=== PATIENT | female | born 1995 | race Caucasian/White ===

== ENCOUNTER 2023-03-19 10:07 | Emergency (ER) | payer OTHER, SELFPAY ==
[2023-03-19 10:13] VITALS: BP 170/67; PULSE 75; RESP 18; TEMP 36.5; O2SAT 97; BMI 205.8
[2023-03-19 10:17] VITALS: O2SAT 98
[2023-03-19 10:18] VITALS: O2SAT 98
[2023-03-19 10:19] VITALS: BP 170/67; PULSE 82; RESP 18
--- NOTE | 2023-03-19 10:25 | ED.CHESTPAI1 ---
HPI - Chest Pain General Chief Complaint: Chest Pain Stated Complaint: CHEST PAIN Time Seen by Provider: 03/19/23 10:15 Source: patient Mode of arrival: walk-in Limitations: no limitations History of Present Illness HPI narrative: Patient presents to emergency department complaining of chest pain. Patient states she had just woken up and developed substernal chest pain radiating to the epigastric region. She states it felt like a burning, aching pain. Similar to when she had gallbladder issues. She states the last time she had this happened she was nauseated, and eventually passed out. She was seen and evaluated by her primary care doctor. She states today she wanted to be evaluated before she passed out. She denies any fever, chills, cough. She states the symptoms resolved after 10 minutes. Denies any previous history of heart disease, or thrombotic embolic disease. Patient does not take control or smokes. She has not had any recent surgery or long distance travel. She denies any lower extremity edema, or cramping. Denies any vomiting, diarrhea, constipation, or abdominal pain. Denies any flank pain, hematuria, dysuria. Patient has history of myocardial infarction diarrhea and she is not on any control which is what normally regulates her menses. Risk Factors Coronary artery disease risk factors: family history of CAD before age 50 Thoracic aortic dissection risk factors: none Pulmonary embolism risk factors: morbid obesity Related Data Allergies Allergy/AdvReac Type Severity Reaction Status Date / Time No Known Drug Allergies Allergy Verified 03/19/23 10:13 Review of Systems ROS Status of ROS 10 or more systems reviewed and unremarkable except as noted in history and below [facility] Social History Smoking status: Never smoker Exam Narrative Exam Narrative: Nurses notes and vital signs reviewed and patient is not hypoxic. General: Nontoxic, Well-appearing and in no apparent distress. Skin: Warm, dry, no pallor noted. No Rash Head: Normocephalic, atraumatic. Neck: Supple, non-tender. Eye: Pupils are equal, round and EOMI. No scleral icterus. Ears, Nose, Mouth, and Throat: TM clear, no posterior oropharynx erythema or nasal mucosal hypertrophy, uvula is mid-line Oral mucosa is moist Cardiovascular: Regular Rate and Rhythm without murmur, gallop or rub. Respiratory: No accessory muscle use or respiratory distress. Lungs are clear to auscultation, no wheezing, rales or rhonchi Chest Wall: no tenderness Back: No midline thoracic or lumbar vertebral tenderness. No CVA tenderness Musculoskeletal: normal ROM, no calf or popliteal tenderness, no lower extremity edema/swelling GI: obese, Abdomen is soft, non-distended. Normal bowel sounds. No masses appreciated. No tenderness to palpation. No rebound, guarding, or rigidity noted. Neurological: A&O x4. No cranial nerve dysfunction observed. No truncal ataxia. Moves all extremities. Sensation intact. Psychiatric: Cooperative and interactive. Normal mood and affect. Constitutional Vital Signs, click to edit/add: Last Vital Signs Temp 97.7 F 03/19/23 10:13 Pulse 82 03/19/23 10:19 Resp 18 03/19/23 10:19 BP 170/67 H 03/19/23 10:19 Pulse Ox 98 03/19/23 10:18 O2 Del Method Room Air 03/19/23 10:13 Course Vital Signs Vital signs: Vital Signs Temperature 97.7 F 03/19/23 10:13 Pulse Rate 75 03/19/23 10:13 Respiratory Rate 18 03/19/23 10:13 Blood Pressure 170/67 H 03/19/23 10:13 Pulse Oximetry 97 03/19/23 10:13 Oxygen Delivery Method Room Air 03/19/23 10:13 Temperature 97.7 F 03/19/23 10:13 Pulse Rate 82 03/19/23 10:19 Respiratory Rate 18 03/19/23 10:19 Blood Pressure 170/67 H 03/19/23 10:19 Pulse Oximetry 98 03/19/23 10:18 Oxygen Delivery Method Room Air 03/19/23 10:13 MDM - Chest Pain MDM Narrative Medical decision making narrative: Patients EKG is unremarkable. Patient was given IV fluids and lab work was done and is unremarkable. Chest x-ray is normal. All results were discussed with patient.Patient is advised follow-up with primary care doctor regarding this visit and to have her blood pressure rechecked. At this time the patient is without objective evidence of an acute process requiring hospitalization or inpatient management. The patient has remained hemodynamically stable. No additional indication for emergent studies at this time. I answered all questions. Discussed discharge instructions including standard anticipatory guidance and what should prompt a return to the emergency department, including if they get worse are not getting better or develops any new or concerning symptoms. I've given them specific time frame in which to follow-up, and who to follow-up with. The patient demonstrates understanding. Patient is nontoxic and stable for discharge with outpatient follow-up. This note was created with the assistance of a speech recognition program. Although the intention is to generate documents that actually reflects the content of the visit, no guarantees can be provided that every mistake has been identified and corrected by editing. Differential Diagnosis Differential diagnosis: Likely pneumothorax, atypical chest pain, st elevation myocardial infarction, chest pain and biliary colic Lab Data Attestation: I reviewed the patient's lab results. Labs: Lab Results 03/19/23 Range/Units 10:20 WBC 9.1 (4.0-11.0) 10^3/uL RBC 4.88 (4.20-5.40) 10^6/uL Hgb 14.7 (12.0-16.0) g/dL Hct 43.3 (36.0-48.0) % MCV 88.7 (81.0-99.0) fL MCH 30.1 (26.7-34.0) pg MCHC 33.9 (29.9-35.2) g/dL RDW 12.1 (11.0-15.0) % Plt Count 351 (150-450) 10^3/uL MPV 9.6 (9.5-13.5) fL Neut % (Auto) 61.1 (43.0-75.0) % Lymph % (Auto) 30.6 (20.5-60.0) % Lanier % (Auto) 6.3 (1.7-12.0) % Eos % (Auto) 1.2 (0.9-7.0) % Baso % (Auto) 0.5 (0.2-2.0) % Neut # (Auto) 5.6 (1.4-6.5) 10^3/uL Lymph # (Auto) 2.8 (1.2-3.8) 10^3/uL [place]ier # (Auto) 0.6 (0.3-0.8) 10^3/uL Eos # (Auto) 0.1 (0.0-0.7) 10^3/uL Baso # (Auto) 0.1 (0.0-0.1) 10^3/uL Abs Immat Gran (auto) 0.03 (0.00-0.03) 10^3/uL Imm/Tot Granulo (auto) 0.3 (0.0-0.5) % D-Dimer 0.26 (<=0.59) mg/L FEU Sodium 141 (136-145) mmol/L Potassium 4.1 (3.5-5.1) mmol/L Chloride 104 (98-107) mmol/L Carbon Dioxide 26.4 (21.0-32.0) mmol/L Anion Gap 14.7 BUN 10.0 (7.0-18.0) mg/dL Creatinine 0.80 (0.55-1.02) mg/dL Est GFR ( Amer) >60 (>=60) Est GFR (Non-Af Amer) >60 (>=60) BUN/Creatinine Ratio 12.5 Glucose 109 H (74-106) mg/dL Calcium 8.8 (8.5-10.1) mg/dL Total Bilirubin 0.4 (0.2-1.0) mg/dL AST 16 (15-37) U/L ALT 27 (14-59) U/L Alkaline Phosphatase 115 (46-116) U/L Troponin I High Sens 8.4 (4.0-51.3) pg/mL Total Protein 7.5 (6.4-8.2) g/dL Albumin 3.8 (3.4-5.0) g/dL Globulin 3.7 g/dL Albumin/Globulin Ratio 1.0 ECG Data Attestation: I personally reviewed and interpreted this ECG as follows: Interpretation: Sinus rhythm 70 bpm. T-wave inversion in lead 3. No acute ischemic changes. Heart Score History: Slightly/Non-Suspicious ECG: Normal Age: <45 years Risk Factors: 1 or 2 Risk Factors Troponin: <Normal Limit Total Heart Score Recommendations & Risks:: 1 Discharge Plan Discharge Chief Complaint: Chest Pain Clinical Impression: Chest pain Patient Disposition: Home, Self-Care Time of Disposition Decision: 11:21 Condition: Good Mode of Transportation: Private Vehicle Instructions: Chest Pain (ED) Stand Alone Forms: Portal Instructions Referrals: Physician,Non-Staff, [Physician] - 1 week Discharge Date/Time: 03/19/23 11:30
[2023-03-19 10:26] VITALS: PULSE 87
--- NOTE | 2023-03-19 10:41 | XR_ITS ---
The [address] [address] Patient Name: CLARK PULLIAM MRN: [id number] date: 1995 Sex: F Assigned Patient Location: ED.MAIN Current Patient Location: ER Accession/Order Number: [id number] Exam Date: 03/19/2023 10:52 Report Date: 03/19/2023 11:14 At the request of: OSWALD FRANKLIN Procedure: XR chest 1V PROCEDURE: XR chest 1V DATE: 03/19/2023 9:52 AM CDT COMPARISONS: None. CLINICAL INDICATION: 27 years Female chest pain FINDINGS: The cardiomediastinal silhouette and pulmonary vasculature are within normal limits. The lungs are clear. There is no evidence of pleural effusion or pneumothorax. XR/XR chest 1V IMPRESSION: Chest radiograph is within normal limits. Electronically authenticated by: MICHAEL GARCIA Date: 03/19/2023 11:14
--- NOTE | 2023-03-19 10:41 | ECG_ITS ---
The 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
[2023-03-19 10:49] LABS: Basophils Absolute Auto 0.1 10^3/uL (0.0-0.1); Basophils Percent Auto 0.5 % (0.2-2.0); Eosinophils Absolute Auto 0.1 10^3/uL (0.0-0.7); Eosinophils Percent Auto 1.2 % (0.9-7.0); Hematocrit 43.3 % (36.0-48.0); Hemoglobin 14.7 g/dL (12.0-16.0); Immature Granulocytes Abs Auto 0.03 10^3/uL (0.00-0.03); Immature Granulocytes Pct Auto 0.3 % (0.0-0.5); Lymphocytes Absolute Auto 2.8 10^3/uL (1.2-3.8); Lymphocytes Percent Auto 30.6 % (20.5-60.0); Mean Corpuscular HGB Conc 33.9 g/dL (29.9-35.2); Mean Corpuscular Hemoglobin 30.1 pg (26.7-34.0); Mean Corpuscular Volume 88.7 fL (81.0-99.0); Mean Platelet Volume 9.6 fL (9.5-13.5); Monocytes Absolute Auto 0.6 10^3/uL (0.3-0.8); Monocytes Percent Auto 6.3 % (1.7-12.0); Neutrophils Absolute Auto 5.6 10^3/uL (1.4-6.5); Neutrophils Percent Auto 61.1 % (43.0-75.0); Platelet Count 351 10^3/uL (150-450); Red Blood Count 4.88 10^6/uL (4.20-5.40); Red Cell Distribution Width 12.1 % (11.0-15.0); White Blood Count 9.1 10^3/uL (4.0-11.0)
[2023-03-19 11:08] LABS: Alanine Aminotransferase 27 U/L (14-59); Albumin Level 3.8 g/dL (3.4-5.0); Alkaline Phosphatase 115 U/L (46-116); Anion Gap 14.7; Aspartate Amino Transferase 16 U/L (15-37); BUN Creatinine Ratio 12.5; Bilirubin Total 0.4 mg/dL (0.2-1.0); Calcium 8.8 mg/dL (8.5-10.1); Carbon Dioxide 26.4 mmol/L (21.0-32.0); Chloride 104 mmol/L (98-107); Estimated GFR (African America >60 (>=60); Estimated GFR (Non-African Ame >60 (>=60); Globulin 3.7 g/dL; Glucose 109 mg/dL (74-106); Potassium 4.1 mmol/L (3.5-5.1); Sodium 141 mmol/L (136-145); Total Protein 7.5 g/dL (6.4-8.2); Troponin I High Sensitivity 8.4 pg/mL (4.0-51.3)
[2023-03-19 11:13] LABS: D Dimer 0.26 mg/L FEU (<=0.59)
== END 2023-03-19 11:30 | disposition home or self-care (01) ==
PROVIDERS: Emergency Provider Emergency Medicine; PCP Internal Medicine
DX: R07.9 Chest pain, unspecified (principal); Z82.49 Family history of ischemic heart disease and other diseases of the circulatory system
CPT/HCPCS: 36415; 71045; 80053; 84484; 85025; 85378; 93005; 99285

== ENCOUNTER 2025-07-01 10:22 | Outpatient (OUT) | payer BC, SELFPAY ==
--- OUTSIDE RECORDS SUMMARY | 2025-07-01 09:00 | XMS_ITS | Encounter Summary ---
Author Organization [facility] Address [address] [facility] [place] [address] Care Team Providers Care User Interface Developer Name Role Phone Unavailable Primary Care Provider Unavailabl e Reason for Visit * ReasonCommentsWell Women Visit Encounter Details DateTypeDepartmentCare Team (Latest Contact Info)Wisupadmxij82/27/2025 9:00 AM EDTProcedure Visit [facility] [address] [place] [phone] Leida Barkley PA [address] [place] [address] Pelvic pain in female (Primary Dx); Well woman exam with routine gynecological exam; Menorrhagia with regular cycle; Fertility testing; Syncope, unspecified syncope type Social History Tobacco UseTypesPacks/DayYears UsedDateSmoking Tobacco: Never Assessed CommentsUnknownSex and Gender InformationValueDate RecordedSex Assigned at Not on fileLegal ZubVjhrbu32/15/2023 7:04 PM EDTGender IdentityNot on fileSexual OrientationNot on filedocumented as of this encounter Last Filed Vital Signs Vital SignReadingTime TakenCommentsBlood Vsfsrjku854/801 9:20 AM EDT Pulse--Temperature--Respiratory Rate--Oxygen Saturation--Inhaled Oxygen Concentration--Gzidxj323 kg (237 lb 6.4 oz)07/01/2025 9:20 AM ATSZdfyhl617.6 cm (5' 6 )07/01/2025 9:20 AM EDTBody Mass Index38.321 9:20 AM EDT documented in this encounter Plan of Treatment DateTypeDepartmentCare Team (Latest Contact Info)Bmtnutcckpx65/25/2025 8:50 AM ESTOffice Visit [facility] [address] [place] [address] Jose Manuel Sharpe DO [address] [place] [address] NameTypePriorityAssociated DiagnosesOrder SchedulePap SmearPathology and CytologyRoutine Well [...] regular cycle Expected: 07/01/2025 (Approximate), Expires: 07/01/2026Hemoglobin A5tIbtTkynida Menorrhagia with regular cycle Ordered: 07/01/2025ECG 12 lead unit performedECGRoutine Syncope, unspecified syncope type Expected: 07/01/2025 (Approximate), Expires: 07/01/2026documented as of this encounter Procedures Procedure NamePriorityDate/TimeAssociated DiagnosisCommentsPOCT URINALYSIS KWOUXDNMFcthphw76/27/2025 10:15 AM EDT Pelvic pain in female POCT , UYKEFRrqbhgs97/27/2025 10:13 AM EDT Pelvic pain in female [...] Location / LateralityCollection Method / VolumeCollection TimeReceived RnvgPuupe96/27/2025 10:15 AM EDT Narrative Authorizing ProviderResult TypeResult StatusAmy [place] PAPOINT OF CARE TEST ENTER/EDIT ORDERABLESFinal Result * POCT , urine manually resulted (07/01/2025 10:13 AM EDT)Component ValueRef RangeTest MethodAnalysis TimePerformed AtPathologist SignaturePreg Test, UrNegativeNegativeSpecimen (Source)Anatomical Location / Laterality Collection Method / VolumeCollection TimeReceived DrreZcpuf58/27/2025 10:13 AM EDT Narrative Authorizing ProviderResult TypeResult [...]
--- OUTSIDE RECORDS SUMMARY | 2025-07-01 10:27 | XMS_ITS | Clinical Summary ---
Author Organization [facility] Address [address] [facility] [place] [address] Care Team Providers Care Lead Shop Operator Name Role Phone Unavailable Primary Care Provider Unavailabl e Encounters DateTypeDepartmentCare DngoZkqefalnytr33/27/2025 9:00 AM EDTProcedure Visit [facility] [address] [place] [address] Leida Barkley PA Pelvic pain in female (Primary Dx); Well woman exam with routine gynecological exam; Menorrhagia with regular cycle; Fertility testing; Syncope, unspecified syncope type07/01/2025amboo flowsheet [facility] [address] [place] [address] Leida Barkley PA from Last 3 Months Social History Tobacco UseTypesPacks/DayYears UsedDateSmoking Tobacco: Never Assessed CommentsUnknownSex and Gender InformationValueDate RecordedSex Assigned at Not on fileLegal FbdOwtdoo41/15/2023 7:04 PM EDTGender IdentityNot on fileSexual OrientationNot on file Last Filed Vital Signs Vital SignReadingTime TakenCommentsBlood Jgnqgges322/801 9:20 AM EDT Pulse--Temperature--Respiratory Rate--Oxygen Saturation--Inhaled Oxygen Concentration--Szcodt238 kg (237 lb 6.4 oz)07/01/2025 9:20 AM NXITyqkix462.6 cm (5' 6 )07/01/2025 9:20 AM EDTBody Mass Index38.321 9:20 AM EDT Plan of Treatment DateTypeDepartmentCare Team (Latest Contact Info)Hogvklljoab80/25/2025 8:50 AM ESTOffice Visit [facility] [address] [place] [address] Jose Manuel Sharpe DO [address] [facility] [address] [place], [place] [id number] Health MaintenanceDue DateLast DoneCommentsPap Smear2014Cervical Cancer Tmbajplgt58/12/2023HPV/Huxvga0107/17/2023Influenza Vaccine (#1)2025 Procedures Procedure NamePriorityDate/TimeAssociated DiagnosisCommentsPOCT URINALYSIS MTCUCHZLIsmzefz51/27/2025 10:15 AM EDT Pelvic pain in female POCT , LKCCVQejpuyi22/27/2025 10:13 AM EDT Pelvic pain in female from Last 3 Months Results * (ABNORMAL) POCT urinalysis dipstick manually [...] Location / LateralityCollection Method / VolumeCollection TimeReceived FebmYcmgr67/27/2025 10:15 AM EDT Narrative Authorizing ProviderResult TypeResult StatusAmy Forks PAPOINT OF CARE TEST ENTER/EDIT ORDERABLESFinal Result * POCT , urine manually resulted (07/01/2025 10:13 AM EDT)Component ValueRef RangeTest MethodAnalysis TimePerformed AtPathologist SignaturePreg Test, UrNegativeNegativeSpecimen (Source)Anatomical Location / Laterality Collection Method / VolumeCollection TimeReceived AftbNvbvb80/27/2025 10:13 AM EDT Narrative Authorizing ProviderResult TypeResult StatusAmy Filippo PAPOINT OF CARE TEST ENTER/EDIT ORDERABLESFinal Result from Last 3 Months Insurance
--- OUTSIDE RECORDS SUMMARY | 2025-07-01 10:27 | XMS_ITS | Encounter Summary ---
Author Organization [facility] Address [address] [place] [address] Care Team Providers Care Cardiology Fellow Name Role Phone Unavailable Primary Care Provider Unavailabl e Encounter Details DateTypeDepartmentCare Team (Latest Contact Info)Suzwmkjfbfb45/27/2025amboo flowsheet [facility] [address] [facility] [address] Leida Barkley PA [address] [facility] [address] [place], [facility]11 Social History Tobacco UseTypesPacks/DayYears UsedDateSmoking Tobacco: Never Assessed CommentsUnknownSex and Gender InformationValueDate RecordedSex Assigned at Not on fileLegal YjmAedhrq02/15/2023 7:04 PM EDTGender IdentityNot on fileSexual OrientationNot on filedocumented as of this encounter Plan of Treatment DateTypeDepartmentCare Team (Latest Contact Info)Uuwnllftrpa90/25/2025 8:50 AM ESTOffice Visit [facility] TR[facility] [address] [facility] [address] Jose Manuel Sharpe DO [address] [facility] [address] [place], [facility]11 documented as of this encounter Visit Diagnoses Not on filedocumented in this encounter
--- OUTSIDE RECORDS SUMMARY | 2025-07-01 10:27 | XMS_ITS | Clinical Summary ---
Author Organization [employer] Address [id number] [address] [place] [address] Care Team Providers Care Wine Cellar Worker Name Role Phone Jerry Orozco MD Primary Care Provider [phone] Allergies Active AllergyReactionsCriticalityNoted RsfmNjofimmiGknntebkjjwSiygQfh59/16/2017 Medications MedicationSigDispense QuantityRefillsLast FilledStart DateEnd DateStatus semaglutide 0.25 mg or 0.5 mg(2 mg/1.5 mL) pen injector Inject under the skin every 7 days.Active escitalopram (LEXAPRO) 10 mg tablet Indications:AnxietyTake 1 tablet (10 mg total) by mouth in the morning. 90 tablet 5Active Active Problems ProblemNoted DateDiagnosed DateAmenorrhea, ifjczinyu40/13/2018 Encounters DateTypeDepartmentCare RfxqMkpsameslst00/22/2025 3:15 PM EDTOffice Visit [facility] [address] [place] [address] Jerry Orozco MD Anxiety (Primary Dx)04/26/20255055Zswpby53/13/2025Refill [facility] [address] [place] [address] Jerry Orozco MD Depression, unspecified depression typefrom Last 3 Months Immunizations ImmunizationAdministration DatesNext DueCOVID-19, mRNA, LNP-S, PF, 100mcg/0.5mL Dose08/09/2021,12/31/2020,12/03/2020 Family History Medical HistoryRelationNameCommentsHypertensionFatherHypertensionMaternal GrandfatherCholecystitisMaternal GrandmotherHeart diseaseMaternal Grandmother HypertensionMaternal UncleGallbladder diseaseMotherRelationNameStatusComments FatherAliveMaternal GrandfatherMaternal GrandmotherDeceasedMaternal UncleMother Alive Social History Tobacco UseTypesPacks/DayYears UsedDateSmoking Tobacco: NeverSmokeless Tobacco: Never Tobacco Cessation:Counseling Given: No Alcohol UseStandard Drinks/WeekCommentsNo0 (1 standard drink = 0.6 oz pure alcohol)PHQ-2AnswerDate RecordedTotal Hsukp6395ChildcareAnswerDate YpikunpuQinmzjfjsZdyfpjl33/12/2019EmploymentAnswerDate RecordedEmploymentUnknown 02/14/2019Hunger ScreeningAnswerDate RecordedWithin the past 12 months we worried whether our food would run out before we got money to buy more.Never True04/26/2025Within the past 12 months the food we bought just didn't last and we didn't have money to get more.Never True04/26/2025Purpose - LifeAnswerDate RecordedPurpose and direction in uoiuFfysnsa46/11/2021CommentsNoSex and Gender InformationValueDate RecordedSex Assigned at BirthNot on fileLegal Sex Hhmago6604/10/2015 11:48 AM EDTGender IdentityNot on fileSexual OrientationNot on file Last Filed Vital Signs Vital SignReadingTime TakenCommentsBlood Xhkwnpmy525/8404/26/2025 3:09 PM EDT Fvabs27921/22/2025 3:09 PM TEWWlktnagqfbl05.4 ??C (97.6 ??F)04/26/2025 3:09 PM EDTRespiratory Efmj764709/16/2018 12:15 PM ESTOxygen Gcczhuvkmu52%2019 12:15 PM ESTInhaled Oxygen Concentration--Ulvqlj387.5 kg (250 lb 3.2 oz)04/26/2025 3:09 PM PGSBzluer111.3 cm (5' 6.26 )04/26/2025 3:09 PM EDTBody Mass Index40.07 04/26/2025 3:09 PM EDT Plan of Treatment Health MaintenanceDue DateLast DoneCommentsAdult BMI Follow Up Plan2011 DTaP,Tdap and Td Vaccines (1 - Tdap)2012Pap Smear2014COVID-19 Vaccine (4 - 2024- season)/01/2021, 12/31/2020, 12/03/2020 Influenza Aqnuykr0605/06/2025dult BMI Awxglncds67Depression Vxqzhxqwn24Tobacco Hsshmrcbg44 Medical Devices Not on file Insurance * Guarantor: Carmelita Nunez TypeRelation to PatientDate of PhoneBilling [id number] [address] [place] [address] Care Teams Team MemberRelationshipSpecialtyStart DateEnd Date Jerry Orozco MD [address] [place] [address], [address] [place] [address] PCP - GeneralPediatric02/15/18
[2025-07-01 10:50] LABS: Hematocrit 43.6 % (36.0-48.0); Hemoglobin 15.1 g/dL (12.0-16.0); Immature Granulocytes Abs Auto 0.02 10^3/uL (0.00-0.03); Immature Granulocytes Pct Auto 0.2 % (0.0-0.5); Lymphocytes Absolute Auto 2.4 10^3/uL (1.2-3.8); Mean Corpuscular HGB Conc 34.6 g/dL (29.9-35.2); Mean Corpuscular Hemoglobin 31.3 pg (26.7-34.0); Mean Corpuscular Volume 90.5 fL (81.0-99.0); Platelet Count 319 10^3/uL (150-450); Red Blood Count 4.82 10^6/uL (4.20-5.40); White Blood Count 9.2 10^3/uL (4.0-11.0)
[2025-07-01 11:07] LABS: INR 1.03; Partial Thromboplastin Time 31.3 sec (22.3-36.2); Prothrombin Time 10.9 sec (9.0-11.6)
[2025-07-01 11:49] LABS: Thyroid Stimulating Hormone 1.782 uIU/mL (0.358-3.740)
== END 2025-07-01 10:23 | disposition home or self-care (01) ==
LOC: LAB 10:25
PROVIDERS: PCP Internal Medicine; Visit Provider Nurse Practitioner Family
DX: Z01.419 Encounter for gynecological examination (general) (routine) without abnormal findings (principal); N92.0 Excessive and frequent menstruation with regular cycle
CPT/HCPCS: 36415; 83036; 84439; 84443; 84702; 85025; 85610; 85730; 88175

== ENCOUNTER 2025-07-01 12:23 | Outpatient (REF) | payer BC, SELFPAY ==
--- OUTSIDE RECORDS SUMMARY | 2025-07-01 09:00 | XMS_ITS | Encounter Summary ---
Author Organization [facility] Address [address] [place] [address] Care Team Providers Care Professor Of Art History Name Role Phone Unavailable Primary Care Provider Unavailabl e Reason for Visit * ReasonCommentsWell Women Visit Encounter Details DateTypeDepartmentCare Team (Latest Contact Info)Jgerayoqppv65/27/2025 9:00 AM EDTProcedure Visit [facility] [address] [place] [phone] Leida Barkley PA [address] [place] [address] Pelvic pain in female (Primary Dx); Well woman exam with routine gynecological exam; Menorrhagia with regular cycle; Fertility testing; Syncope, unspecified syncope type Social History Tobacco UseTypesPacks/DayYears UsedDateSmoking Tobacco: Never Assessed CommentsUnknownSex and Gender InformationValueDate RecordedSex Assigned at Not on fileLegal UliSujpwi64/15/2023 7:04 PM EDTGender IdentityNot on fileSexual OrientationNot on filedocumented as of this encounter Last Filed Vital Signs Vital SignReadingTime TakenCommentsBlood Xmazssio138/801 9:20 AM EDT Pulse--Temperature--Respiratory Rate--Oxygen Saturation--Inhaled Oxygen Concentration--Xrthdw276 kg (237 lb 6.4 oz)07/01/2025 9:20 AM VJNOeqklx698.6 cm (5' 6 )07/01/2025 9:20 AM EDTBody Mass Index38.321 9:20 AM EDT documented in this encounter Progress Notes * BRANT Boyle - 07/01/2025 9:00 AM EDT Reason for Appointment: Patient ID: Carmelita Nunez is a 29 y.o. female who presents for Well Women Visit Patient presents today for Annual Exam. MEDICATIONS No current outpatient medications ALLERGIES Not on File PROBLEMS Active Ambulatory Problems Diagnosis Date Noted No Active Ambulatory Problems Resolved Ambulatory Problems Diagnosis Date Noted No Resolved Ambulatory Problems No Additional Past Medical History HISTORY PAST MEDICAL HISTORY SOCIAL HISTORY History reviewed. No pertinent past medical history. Social History Tobacco Use Smoking status: Not on file Smokeless tobacco: Not on file Substance Use Topics Alcohol use: Not on file Drug use: Not on file FAMILY HISTORY No family history on file. SURGICAL HISTORY Past Surgical History: Procedure Laterality Date 2018 TONSILLECTOMY REVIEW OF SYSTEMS Review of Systems: Review of Systems Constitutional: Negative. HENT: Negative. Eyes: Negative. Respiratory: Negative. Cardiovascular: Negative. Syncope Gastrointestinal: Negative. Genitourinary: Positive for menstrual problem, pelvic pain and vaginal bleeding. Musculoskeletal: Negative. Skin: Negative. Neurological: Negative. All other systems reviewed and are negative. Hematological: Negative. Endocrine: Negative. Allergic/Immunologic: Negative. OBJECTIVE Objective: Physical Exam Constitutional: Appearance: Normal appearance. She is well-developed. Genitourinary: Vulva normal. Breasts: Breasts are soft. Right: Normal. Left: Normal. Cardiovascular: Rate and Rhythm: Normal rate and regular rhythm. Pulmonary: Effort: Pulmonary effort is normal. Breath sounds: Normal breath sounds. Abdominal: General: Bowel sounds are normal. There is no distension. Palpations: Abdomen is soft. Tenderness: There is no abdominal tenderness. There is no guarding or rebound. Musculoskeletal: General: No swelling. Normal range of motion. Right lower leg: No edema. Left lower leg: No edema. Neurological: Mental Status: She is alert and oriented to person, place, and time. Skin: General: Skin is warm and dry. Psychiatric: Mood and Affect: Mood normal. Behavior: Behavior normal. Vitals and nursing note reviewed. Exam conducted with a mobile game engineer present. Vitals: Estimated body mass index is 38.32 kg/m?? as calculated from the following: Height as of this encounter: 5' 6 . Weight as of this encounter: 237 lb 6.4 oz. BP: 122/80 No LMP recorded (within months). Assessment/Plan ICD-10-CM 1. Pelvic pain in female R10.20 US Pelvis w/ TV 2. Well woman exam with routine gynecological exam Z01.419 Pap Smear HPV DNA probe, amplified 3. Menorrhagia with regular cycle N92.0 CBC and differential TSH hCG, quantitative, Protime-INR T4, free APTT Hemoglobin A1c APTT Annual Exam: Patient presents today for an annual exam. Patient states she is doing well and has no complaints. Pap was obtained without difficulty. Patient with complaints of heavy irregular menstrual cycles andpelvic pain right sided. Sometimes the pain is so significant that she will have a syncopal episodethis initially began in 2020 and will have vomiting associated with this. Patient states syncopal ev ents are occurring more often just prior to starting menstral cycles. Given syncopal events will recommend referral to cardiology. Orders Placed This Encounter Procedures HPV DNA probe, amplified US Pelvis w/ TV CBC and differential TSH hCG, quantitative, Protime-INR T4, free APTT Hemoglobin A1c Follow Up: Will obtain pelvic ultrasound, EKG and labs and will scheduled a return office visit to review labsand discuss infertility options and referral to cardiology. Patient is to return in one year for annual unless needed otherwise. Documented by Michelle Hagen NP on behalf of: BRANT Boyle documented in this encounter Plan of Treatment DateTypeDepartmentCare Team (Latest Contact Info)Pjbfejsoefk57/25/2025 8:50 AM ESTOffice Visit [facility] [address] [place] [phone] Jose Manuel Sharpe DO [address] [place] [address] NameTypePriorityAssociated DiagnosesOrder SchedulePap SmearPathology and CytologyRoutine Well woman exam with routine gynecological exam Ordered: 07/01/2025HPV DNA probe, amplifiedMicrobiologyRoutine Well woman exam with routine gynecological exam Ordered: 07/01/2025US Pelvis w/ TVImagingRoutine Pelvic pain in female Expected: 07/01/2025, Expires: 12/30/2025BC and differentialLabRoutine Menorrhagia with regular cycle Ordered: 07/01/2025TSHLabRoutine Menorrhagia with regular cycle Ordered: 07/01/2025hCG, quantitative, pregnancyLabRoutine Menorrhagia with regular cycle Ordered: 07/01/2025Protime-INRLabRoutine Menorrhagia with regular cycle Ordered: 07/01/2025T4, freeLabRoutine Menorrhagia with regular cycle Ordered: 07/01/2025PTTLabRoutine Menorrhagia with regular cycle Expected: 07/01/2025 (Approximate), Expires: 07/01/2026Hemoglobin M8rHjqJywudfo Menorrhagia with regular cycle Ordered: 07/01/2025ECG 12 lead unit performedECGRoutine Syncope, unspecified syncope type Expected: 07/01/2025 (Approximate), Expires: 07/01/2026documented as of this encounter Procedures Procedure NamePriorityDate/TimeAssociated DiagnosisCommentsPOCT URINALYSIS CBVKWVWUSuxqwtr89/27/2025 10:15 AM EDT Pelvic pain in female POCT , RPEQHRpvtkhz15/27/2025 10:13 AM EDT Pelvic pain in female documented in this encounter Results * (ABNORMAL) POCT urinalysis dipstick manually resulted (07/01/2025 10:15 AM EDT)ComponentValueRef RangeTest MethodAnalysis TimePerformed AtPathologist SignatureColor, UAYellowClarity, UAClearGlucose, UANegativeNegative - 2000(110) ++++ mg/dLBilirubin, UAPositiveNegative - 4(70) +++ mg/dLKetones, UA NegativeNegative - 160(16) ++++ mg/dLSpec Grav, UA1.0251 - 1.03Blood, UA NegativeNegative - 50 Basim/mcLpH, UA6.05 - 9Protein, UAPositiveNegative - 2000(20) ++++ mg/dLUrobilinogen, UA1.00.2 - 12 mg/dLLeukocytes, UANegative Negative - 500+++ Jaylon/mcLNitrite, UANegativeNegative - PositiveSpecimen (Source)Anatomical Location / LateralityCollection Method / VolumeCollection TimeReceived PylrVsxdu09/27/2025 10:15 AM EDT Narrative Authorizing ProviderResult TypeResult StatusAmy Filippo PAPOINT OF CARE TEST ENTER/EDIT ORDERABLESFinal Result * POCT , urine manually resulted (07/01/2025 10:13 AM EDT)Component ValueRef RangeTest MethodAnalysis TimePerformed AtPathologist SignaturePreg Test, UrNegativeNegativeSpecimen (Source)Anatomical Location / Laterality Collection Method / VolumeCollection TimeReceived VyvtLdqmh19/27/2025 10:13 AM EDT Narrative Authorizing ProviderResult TypeResult StatusAmy [place] PAPOINT OF CARE TEST ENTER/EDIT ORDERABLESFinal Result documented in this encounter Visit Diagnoses Diagnosis Pelvic pain in female- Primary Unspecified symptom associated with female genital organs Well woman exam with routine gynecological exam Routine gynecological examination Menorrhagia with regular cycle Fertility testing Syncope, unspecified syncope type documented in this encounter
--- OUTSIDE RECORDS SUMMARY | 2025-07-01 12:27 | XMS_ITS | Clinical Summary ---
Author Organization [facility] Address [address] [place] [address] Care Team Providers Care Web Designer Developer Name Role Phone Unavailable Primary Care Provider Unavailabl e Social History Tobacco UseTypesPacks/DayYears UsedDateSmoking Tobacco: Never Assessed CommentsUnknownSex and Gender InformationValueDate RecordedSex Assigned at Not on fileLegal SxvWcquau29/08/2022 10:52 AM EDTGender IdentityNot on file Sexual OrientationNot on file Plan of Treatment Health MaintenanceDue DateLast DoneCommentsAnxiety Brfppczsr25/12/2011Depression Ntwzqsshi09/12/2011HIV Bmpbjegva23/12/2011Hepatitis C Iwvmfzbyy98/12/2011 DTaP,Tdap,Td Vaccine (1 - Tdap)2012Hepatitis B Vaccine (1 of 3 - 19+ 3- dose series)2012Cervical Cancer Gnqyiamwc82/12/2014HPV Vaccine (1 - 3-dose SCDM series)2020Covid-19 Vaccine ( season), 12/31/2020, 12/03/2020Influenza Vaccine (#1)2025
--- OUTSIDE RECORDS SUMMARY | 2025-07-01 12:28 | XMS_ITS | Clinical Summary ---
Author Organization [employer] Address [id number] [address] [place] [address] Care Team Providers Care Arcgis Developer Name Role Phone Jerry Orozco MD Primary Care Provider [phone] Allergies Active AllergyReactionsCriticalityNoted EpauNlizfxjtRxpegblyrdgWmiyFyf41/16/2017 Medications MedicationSigDispense QuantityRefillsLast FilledStart DateEnd DateStatus semaglutide 0.25 mg or 0.5 mg(2 mg/1.5 mL) pen injector Inject under the skin every 7 days.Active escitalopram (LEXAPRO) 10 mg tablet Indications:AnxietyTake 1 tablet (10 mg total) by mouth in the morning. 90 tablet 5Active Active Problems ProblemNoted DateDiagnosed DateAmenorrhea, naotayuhv56/13/2018 Encounters DateTypeDepartmentCare HuzhTwwcfimvrpp68/22/2025 3:15 PM EDTOffice Visit [facility] [address] [place] [address] Jerry Orozco MD Anxiety (Primary Dx)04/26/20258495Sjlkwi24/13/2025Refill [facility] [address] [place] [address] Jerry Orozco MD Depression, unspecified depression typefrom Last 3 Months Immunizations ImmunizationAdministration DatesNext DueCOVID-19, mRNA, LNP-S, PF, 100mcg/0.5mL Dose08/09/2021,12/31/2020,12/03/2020 Family History Medical HistoryRelationNameCommentsHypertensionFatherHypertensionMaternal GrandfatherCholecystitisMaternal GrandmotherHeart diseaseMaternal Grandmother HypertensionMaternal UncleGallbladder diseaseMotherRelationNameStatusComments FatherAliveMaternal GrandfatherMaternal GrandmotherDeceasedMaternal UncleMother Alive Social History Tobacco UseTypesPacks/DayYears UsedDateSmoking Tobacco: NeverSmokeless Tobacco: Never Tobacco Cessation:Counseling Given: No Alcohol UseStandard Drinks/WeekCommentsNo0 (1 standard drink = 0.6 oz pure alcohol)PHQ-2AnswerDate RecordedTotal Nqqbi1305ChildcareAnswerDate KsshwkpkOdrzzemevBzjrree52/12/2019EmploymentAnswerDate RecordedEmploymentUnknown 02/14/2019Hunger ScreeningAnswerDate RecordedWithin the past 12 months we worried whether our food would run out before we got money to buy more.Never True04/26/2025Within the past 12 months the food we bought just didn't last and we didn't have money to get more.Never True04/26/2025Purpose - LifeAnswerDate RecordedPurpose and direction in fggrPcsvxzl54/11/2021CommentsNoSex and Gender InformationValueDate RecordedSex Assigned at BirthNot on fileLegal Sex Gfybou7104/10/2015 11:48 AM EDTGender IdentityNot on fileSexual OrientationNot on file Last Filed Vital Signs Vital SignReadingTime TakenCommentsBlood Zsepurzs511/8404/26/2025 3:09 PM EDT Jkwcp94709/22/2025 3:09 PM QFNCwlxpbragcz94.4 ??C (97.6 ??F)04/26/2025 3:09 PM EDTRespiratory Dqho591509/16/2018 12:15 PM ESTOxygen Gpdetpzmab60%2019 12:15 PM ESTInhaled Oxygen Concentration--Pewtrb005.5 kg (250 lb 3.2 oz)04/26/2025 3:09 PM DMVFexgjp188.3 cm (5' 6.26 )04/26/2025 3:09 PM EDTBody Mass Index40.07 04/26/2025 3:09 PM EDT Plan of Treatment Health MaintenanceDue DateLast DoneCommentsAdult BMI Follow Up Plan2011 DTaP,Tdap and Td Vaccines (1 - Tdap)2012Pap Smear2014COVID-19 Vaccine (4 - 2024- season)/01/2021, 12/31/2020, 12/03/2020 Influenza Uhrehxw5305/06/2025dult BMI Vbkwfigpu16Depression Kkatfuiyr83Tobacco Qcofgmhje41 Medical Devices Not on file Insurance * Guarantor: Carmelita Nunez TypeRelation to PatientDate of PhoneBilling [id number] [address] [place] [address] Care Teams Team MemberRelationshipSpecialtyStart DateEnd Date Jerry Orozco MD [address] [place] [address], [address] [place] [address] PCP - GeneralPediatric02/15/18
--- OUTSIDE RECORDS SUMMARY | 2025-07-01 12:28 | XMS_ITS | Clinical Summary ---
Author Organization [facility] Address [address] [place] [place] [address] Care Team Providers Care Health Care / Medical Job Titles Name Role Phone Unavailable Primary Care Provider Unavailabl e Encounters DateTypeDepartmentCare ZfsrEkpmjttacci62/27/2025 9:00 AM EDTProcedure Visit [facility] [address] [facility] [place] [address] Leida Barkley PA Pelvic pain in female (Primary Dx); Well woman exam with routine gynecological exam; Menorrhagia with regular cycle; Fertility testing; Syncope, unspecified syncope type5Clinisync Result Encounter [facility] External Department Unsolicited Michelle Hagen NP 5Bamboo flowsheet [facility] [address] [facility] [place] [address] Leida Barkley PA from Last 3 Months Social History Tobacco UseTypesPacks/DayYears UsedDateSmoking Tobacco: Never Assessed CommentsUnknownSex and Gender InformationValueDate RecordedSex Assigned at Not on fileLegal ImmKywcxf98/15/2023 7:04 PM EDTGender IdentityNot on fileSexual OrientationNot on file Last Filed Vital Signs Vital SignReadingTime TakenCommentsBlood Tuajnpoc006/801 9:20 AM EDT Pulse--Temperature--Respiratory Rate--Oxygen Saturation--Inhaled Oxygen Concentration--Kszsch231 kg (237 lb 6.4 oz)07/01/2025 9:20 AM YTPHhohrs790.6 cm (5' 6 )07/01/2025 9:20 AM EDTBody Mass Index38.321 9:20 AM EDT Plan of Treatment DateTypeDepartmentCare Team (Latest Contact Info)Gypcjsaamsl83/25/2025 8:50 AM ESTOffice Visit [facility] [address] [place] [phone] Jose Manuel Sharpe, [address] [facility] [place] [address] Health MaintenanceDue DateLast DoneCommentsMMR Vaccines (1 of 1 - Standard series)1994DTaP/Tdap/Td Vaccines (1 - Tdap)2000Varicella Vaccines (1 of 2 - 13+ 2-dose series)2006Hepatitis B Vaccines (1 of 3 - 19+ 3-dose series)2012Pap Smear2014HPV Vaccines (1 - 3-dose SCDM series) 2020Cervical Cancer Ukumhtwoj77/12/2023HPV/Gquswf613COVID-19 Vaccine ( season)/01/2021, 12/31/2020, 12/03/2020 Influenza Vaccine (#1)2025HIB VaccinesAged OutNo longer eligible based on patient's age to complete this topicHepatitis A VaccinesAged OutNo longer eligible based on patient's age to complete this topicIPV VaccinesAged OutNo longer eligible based on patient's age to complete this topicMeningococcal B VaccineAged OutNo longer eligible based on patient's age to complete this topic Meningococcal VaccineAged OutNo longer eligible based on patient's age to complete this topicPneumococcal Vaccine: Pediatrics (0 to 5 Years) and At-Risk Patients (6 to 64 Years)Aged OutNo longer eligible based on patient's age to complete this topicRotavirus VaccinesAged OutNo longer eligible based on patient's age to complete this topic Procedures Procedure NamePriorityDate/TimeAssociated DiagnosisCommentsCCF APTTRoutine 07/01/2025 10:44 AM EDT SRMCOH PROTHROMBIN TIME INR W/O WRXGJnlobpw07/27/2025 10:44 AM EDT TBH PREG QUANT HUFQqdmdeu91/27/2025 10:44 AM EDT ALL THYROID STIM JWSPMTMNmzifsw30/27/2025 10:44 AM EDT ALL THYROXINE (T4) MFPVKjbmxcu89/27/2025 10:44 AM EDT MLR HEMOGLOBIN U9YLbfsdqt06/27/2025 10:44 AM EDT ALL CBC WITH AUTO DUEEOgdwndp86/27/2025 10:44 AM EDT POCT URINALYSIS PDSLRCOLJzxejwh11/27/2025 10:15 AM EDT Pelvic pain in female POCT , OBGJPWlzebty20/27/2025 10:13 AM EDT Pelvic pain in female from Last 3 Months Results * TBH PREG QUANT HCG (07/01/2025 10:44 AM EDT)ComponentValueRef RangeTest Method Analysis TimePerformed AtPathologist SignatureHCG QUANTITATIVE<1mIU/mLTBH Comment: 5-50 ? 0.2-1 WEEK 50-500 ? 1-2 WEEKS 100-5,000 ?2-3 WEEKS 500-10,000 ? 3-4 WEEKS 1,000-50,000 ?? 4-5 WEEKS 10,000-100,000 5-6 WEEKS 15,000-200,000 6-8 WEEKS 10,000-100,000 2-3 MONTHS Specimen (Source)Anatomical Location / LateralityCollection Method / Volume Collection TimeReceived Time07/01/2025 10:44 AM EDT1 10:46 AM EDT Narrative [facility] - 07/01/2025 11:50 AM EDT Authorizing ProviderResult TypeResult StatusKristina Xiao [facility] CENTERLINISYNCFinal ResultPerforming OrganizationAddressCity/State/ZIP CodePhone Number [facility] * SRMCOH PROTHROMBIN TIME INR W/O COUM (07/01/2025 10:44 AM EDT)ComponentValue Ref RangeTest MethodAnalysis TimePerformed AtPathologist SignaturePROTHROMBIN TIME10.99.0 - 11.6 secTBHTBH INR1.03TBHComment: DESIRED INR: 2.0-3.0 CONDITIONS NOT LISTED BELOW 2.5-3.5 FOR PROSTHETIC HEART VALVE REPLACEMENT 2.5-3.5 RECURRENT THROMBOSIS Specimen (Source)Anatomical Location / LateralityCollection Method / Volume Collection TimeReceived Time07/01/2025 10:44 AM EDT1 10:46 AM EDT Narrative [facility] - 07/01/2025 12:11 PM EDT Authorizing ProviderResult TypeResult StatusMichelle Hagen [facility]ENTERLINISYNCFinal ResultPerforming OrganizationAddressCity/State/ZIP CodePhone Number [facility] * MLR HEMOGLOBIN A1C (07/01/2025 10:44 AM EDT)ComponentValueRef RangeTest Method Analysis TimePerformed AtPathologist SignatureGLYCOHEMOGLOBIN A1C4.74.5 - 6.2 %TBHComment: ADA RECOMMENDED LIMIT 4.0 - 6.0 ADA THERAPEUTIC TARGET < 7.0 ACTION SUGGESTED > 7.0 ESTIMATED AVERAGE JZCWWLO76er/dLTBHSpecimen (Source)Anatomical Location / LateralityCollection Method / VolumeCollection TimeReceived Time07/01/2025 10:44 AM EDT1 10:46 AM EDT Narrative [facility] - 07/01/2025 11:13 AM EDT Authorizing ProviderResult TypeResult StatusMichelle Hagen [facility] CENTERLINISYNCFinal ResultPerforming OrganizationAddressty/State/ZIP CodePhone Number [facility] * [facility] APTT (07/01/2025 10:44 AM EDT)ComponentValueRef RangeTest MethodAnalysis TimePerformed AtPathologist SignaturePARTIAL THROMBOPLASTIN TIME31.322.3 - 36.2 secTBHSpecimen (Source)Anatomical Location / LateralityCollection Method / VolumeCollection TimeReceived Time07/01/2025 10:44 AM EDT1 10:46 AM EDT Narrative [facility] - 07/01/2025 12:11 PM EDT Authorizing ProviderResult TypeResult StatusMichelle Hagen [facility] CENTERLINISYNCFinal ResultPerforming OrganizationAddressCity/State/ZIP CodePhone Number [facility] * ALL THYROXINE (T4) FREE (07/01/2025 10:44 AM EDT)ComponentValueRef RangeTest MethodAnalysis TimePerformed AtPathologist SignatureFREE T41.050.76 - 1.46 ng/dLTBHSpecimen (Source)Anatomical Location / LateralityCollection Method / VolumeCollection TimeReceived Time07/01/2025 10:44 AM EDT1 10:46 AM EDT Narrative [facility] - 07/01/2025 11:50 AM EDT Authorizing ProviderResult TypeResult StatusMichelle Hagen [facility]ENTERLINISYNCFinal ResultPerforming OrganizationAddressCity/State/ZIP CodePhone Number [facility] * ALL THYROID STIM HORMONE (07/01/2025 10:44 AM EDT)ComponentValueRef RangeTest MethodAnalysis TimePerformed AtPathologist SignatureTHYROID STIMULATING HORMONE1.7820.358 - 3.740 uIU/mLTBHSpecimen (Source)Anatomical Location / LateralityCollection Method / VolumeCollection TimeReceived Time07/01/2025 10:44 AM EDT1 10:46 AM EDT [facility] - 07/01/2025 11:50 AM EDT Authorizing ProviderResult TypeResult StatusMichelle Hagen [facility] CENTERLINISYNCBrooklyn Hospital Centeral ResultPerforming OrganizationAddressty/State/ZIP CodePhone Number [facility] * (ABNORMAL) ALL CBC WITH AUTO DIFF (07/01/2025 10:44 AM EDT)ComponentValueRef RangeTest MethodAnalysis TimePerformed AtPathologist SignatureTBH WBC9.24.0 - 11.0 10 3/uLTBHTBH RBC4.824.20 - 5.40 10 6/uLTBHTBH HGB15.112.0 - 16.0 g/dLTBH TBH HCT43.636.0 - 48.0 %TBHTBH MCV90.581.0 - 99.0 fLTBHTBH MCH31.326.7 - 34.0 pgTBHTBH MCHC34.629.9 - 35.2 g/dLTBHTBH RDW11.911.0 - 15.0 %TBHTBH YOI854817 - 450 10 3/uLTBHTBH MPV9.4(L)9.5 - 13.5 fLTBHNEUTROPHILS PERCENT AUTO65.543.0 - 75.0 %TBHLYMPHOCYTES PERCENT AUTO25.920.5 - 60.0 %TBHMONOCYTES PERCENT AUTO5.6 1.7 - 12.0 %TBHTBH EO %2.00.9 - 7.0 %TBHBASOPHILS PERCENT AUTO0.80.2 - 2.0 % TBHIMMATURE GRANULOCYTES PCT AUTO0.20.0 - 0.5 %TBHNEUTROPHILS ABSOLUTE AUTO6.0 1.4 - 6.5 10 3/uLTBHLYMPHOCYTES ABSOLUTE AUTO2.41.2 - 3.8 10 3/uLTBHMONOCYTES ABSOLUTE AUTO0.50.3 - 0.8 10 3/uLTBHTBH EO #0.20.0 - 0.7 10 3/uLTBHBASOPHILS ABSOLUTE AUTO0.10.0 - 0.1 10 3/uLTBHIMMATURE GRANULOCYTES ABS AUTO0.020.00 - 0.03 10 3/uLTBHSpecimen (Source)Anatomical Location / LateralityCollection Method / VolumeCollection TimeReceived Time07/01/2025 10:44 AM EDT1 10:46 AM EDT Narrative [facility] - 07/01/2025 10:53 AM EDT Authorizing ProviderResult TypeResult StatusKrodilia Hgaen NPCLINISYNCFinal ResultPerforming OrganizationAddressCity/State/ZIP CodePhone Number [facility] * (ABNORMAL) POCT urinalysis dipstick manually resulted (07/01/2025 10:15 AM EDT)ComponentValueRef RangeTest MethodAnalysis TimePerformed AtPathologist SignatureColor, UAYellowClarity, UAClearGlucose, UANegativeNegative - 1999(110) ++++ mg/dLBilirubin, UAPositiveNegative - 4(70) +++ mg/dLKetones, UA NegativeNegative - 160(16) ++++ mg/dLSpec Grav, UA1.0251 - 1.03Blood, UA NegativeNegative - 50 Basim/mcLpH, UA6.05 - 9Protein, UAPositiveNegative - 1999(20) ++++ mg/dLUrobilinogen, UA1.00.2 - 12 mg/dLLeukocytes, UANegative Negative - 500+++ Jaylon/mcLNitrite, UANegativeNegative - PositiveSpecimen (Source)Anatomical Location / LateralityCollection Method / VolumeCollection TimeReceived ItcyWmypk86/27/2025 10:15 AM EDT Narrative Authorizing ProviderResult TypeResult StatusAmy Filippo PAPOINT OF CARE TEST ENTER/EDIT ORDERABLESFinal Result * POCT , urine manually resulted (07/01/2025 10:13 AM EDT)Component ValueRef RangeTest MethodAnalysis TimePerformed AtPathologist SignaturePreg Test, UrNegativeNegativeSpecimen (Source)Anatomical Location / Laterality Collection Method / VolumeCollection TimeReceived EgnrZyjnp67/27/2025 10:13 AM EDT Narrative Authorizing ProviderResult TypeResult StatusAmy Filippo PAPOINT OF CARE TEST ENTER/EDIT ORDERABLESFinal Result from Last 3 Months Insurance
--- OUTSIDE RECORDS SUMMARY | 2025-07-01 12:28 | XMS_ITS | Encounter Summary ---
Author Organization [facility] Address [address] [place] [address] [place] [address] Care Team Providers Care Sales Performance Analyst Name Role Phone Unavailable Primary Care Provider Unavailabl e Encounter Details DateTypeDepartmentCare Team (Latest Contact Info)Imjddqqojqp15/27/2025amboo flowsheet [facility] [address] [place] [address] Leida Barkley PA [address] [facility] [address] [place], [facility] Social History Tobacco UseTypesPacks/DayYears UsedDateSmoking Tobacco: Never Assessed CommentsUnknownSex and Gender InformationValueDate RecordedSex Assigned at Not on fileLegal RavBgkcoh39/15/2023 7:04 PM EDTGender IdentityNot on fileSexual OrientationNot on filedocumented as of this encounter Plan of Treatment DateTypeDepartmentCare Team (Latest Contact Info)Igkqecykvky86/25/2025 8:50 AM ESTOffice Visit [facility] [address] [place] [address] Jose Manuel Sharpe DO [address] [facility] [address] [facility] [address] [place], [facility]11 documented as of this encounter Visit Diagnoses Not on filedocumented in this encounter
--- OUTSIDE RECORDS SUMMARY | 2025-07-01 12:28 | XMS_ITS | Encounter Summary ---
Author Organization [facility] Address [address] [place] [address] Care Team Providers Care Reclamation Worker Name Role Phone Unavailable Primary Care Provider Unavailabl e Encounter Details DateTypeDepartmentCare Team (Latest Contact Info)Ujyosijolqu40/27/2025linisync Result Encounter [facility] External Department Unsolicited Michelle Hagen, FERMENTOLOGIST [address] [place] [address] Social History Tobacco UseTypesPacks/DayYears UsedDateSmoking Tobacco: Never Assessed CommentsUnknownSex and Gender InformationValueDate RecordedSex Assigned at Not on fileLegal KwpFllrvp28/15/2023 7:04 PM EDTGender IdentityNot on fileSexual OrientationNot on filedocumented as of this encounter Plan of Treatment DateTypeDepartmentCare Team (Latest Contact Info)Fbtosasifyx72/25/2025 8:50 AM ESTOffice Visit NOMRayna [place] OBGYElvira [address] [facility] [facility] [place] [address] Jose Manuel Sharpe DO [address] [place] [address] documented as of this encounter Procedures Procedure NamePriorityDate/TimeAssociated DiagnosisCommentsTBH PREG QUANT HCG Rdursjh0007/01/2025 10:44 AM EDT SRMCOH PROTHROMBIN TIME INR W/O CCJNDbaowdm73/27/2025 10:44 AM EDT MLR HEMOGLOBIN I3OSjjxxmx68/27/2025 10:44 AM EDT [facility] TRTRMsmismk49/27/2025 10:44 AM EDT ALL THYROXINE (T4) BCGITdkdcen13/27/2025 10:44 AM EDT ALL THYROID STIM GEPXAMBPwlkptz48/27/2025 10:44 AM EDT ALL CBC WITH AUTO GUDSWaoyxey94/27/2025 10:44 AM EDT documented in this encounter Results * [facility] APTT (07/01/2025 10:44 AM EDT)ComponentValueRef RangeTest MethodAnalysis TimePerformed AtPathologist SignaturePARTIAL THROMBOPLASTIN TIME31.322.3 - 36.2 secTBHSpecimen (Source)Anatomical Location / LateralityCollection Method / VolumeCollection TimeReceived Time07/01/2025 10:44 AM EDT1 10:46 AM EDT Narrative CLINISYELENITA - 07/01/2025 12:11 PM EDT Authorizing ProviderResult TypeResult StatusMichelle Hagen NPCLINISYNCFinal ResultPerforming OrganizationAddressCity/State/ZIP CodePhone Number [facility] * SRMCOH PROTHROMBIN TIME INR W/O COUM (07/01/2025 10:44 AM EDT)ComponentValue Ref RangeTest MethodAnalysis TimePerformed AtPathologist SignaturePROTHROMBIN TIME10.99.0 - 11.6 secTBHTBH INR1.03TBHComment: DESIRED INR: 2.0-3.0 CONDITIONS NOT LISTED BELOW 2.5-3.5 FOR PROSTHETIC HEART VALVE REPLACEMENT 2.5-3.5 RECURRENT THROMBOSIS Specimen (Source)Anatomical Location / LateralityCollection Method / Volume Collection TimeReceived Time07/01/2025 10:44 AM EDT1 10:46 AM EDT Narrative CLINISYNC - 07/01/2025 12:11 PM EDT Authorizing ProviderResult TypeResult StatusMichelle Hagen NPCLINISYNCFinal ResultPerforming OrganizationAddressCity/State/ZIP CodePhone Number [facility] * TBH PREG QUANT HCG (07/01/2025 10:44 [...] AM EDT Authorizing ProviderResult TypeResult StatusMichelle Hagen [facility]NC[facility] ResultPerforming OrganizationAddressCity/State/ZIP CodePhone Number [facility] * ALL THYROID STIM HORMONE (07/01/2025 10:44 AM EDT)ComponentValueRef RangeTest MethodAnalysis TimePerformed AtPathologist SignatureTHYROID STIMULATING HORMONE1.7820.358 - 3.740 uIU/mLTBHSpecimen (Source)Anatomical Location / LateralityCollection Method / VolumeCollection TimeReceived Time07/01/2025 10:44 AM EDT1 10:46 AM EDT Narrative CLINISYNC - 07/01/2025 11:50 AM EDT Authorizing ProviderResult TypeResult StatusMichelle Hagen [facility]ELINISYNCFinal ResultPerforming OrganizationAddressty/State/ZIP CodePhone Number [facility] * ALL THYROXINE (T4) FREE (07/01/2025 10:44 AM EDT)ComponentValueRef RangeTest MethodAnalysis TimePerformed AtPathologist SignatureFREE T41.050.76 - 1.46 ng/dLTBHSpecimen (Source)Anatomical Location / LateralityCollection Method / VolumeCollection TimeReceived Time07/01/2025 10:44 AM EDT1 10:46 AM EDT Narrative [facility] - 07/01/2025 11:50 AM EDT Authorizing ProviderResult TypeResult StatusMichelle Hagen [facility]INISYNCFinal ResultPerforming OrganizationAddressCity/State/ZIP CodePhone Number [facility] * MLR HEMOGLOBIN A1C (07/01/2025 10:44 AM EDT)ComponentValueRef RangeTest Method Analysis TimePerformed AtPathologist SignatureGLYCOHEMOGLOBIN A1C4.74.5 - 6.2 %TBHComment: ADA RECOMMENDED LIMIT 4.0 - 6.0 ADA THERAPEUTIC TARGET < 7.0 ACTION SUGGESTED > 7.0 ESTIMATED AVERAGE CLPBNBJ60fd/dLTBHSpecimen (Source)Anatomical Location / LateralityCollection Method / VolumeCollection TimeReceived Time07/01/2025 10:44 AM EDT1 10:46 AM EDT [facility] - 07/01/2025 11:13 AM EDT Authorizing ProviderResult TypeResult StatusMichelle Hagen [facility]INISYNCFinal ResultPerforming OrganizationAddressCity/State/ZIP CodePhone Number [facility] * (ABNORMAL) ALL CBC WITH AUTO DIFF (07/01/2025 10:44 AM EDT)ComponentValueRef RangeTest MethodAnalysis TimePerformed AtPathologist SignatureTBH WBC9.24.0 - 11.0 10 3/uLTBHTBH RBC4.824.20 - 5.40 10 6/uLTBHTBH HGB15.112.0 - 16.0 g/dLTBH TBH HCT43.636.0 - 48.0 %TBHTBH MCV90.581.0 - 99.0 fLTBHTBH MCH31.326.7 - 34.0 pgTBHTBH MCHC34.629.9 - 35.2 g/dLTBHTBH RDW11.911.0 - 15.0 %TBHTBH DLK810555 - 450 10 3/uLTBHTBH MPV9.4(L)9.5 - 13.5 [...] 07/01/2025 10:53 AM EDT Authorizing ProviderResult TypeResult StatusMichelle Hagen NPCLINISYNCFinal ResultPerforming OrganizationAddressCity/State/ZIP CodePhone Number [facility] documented in this encounter Visit Diagnoses Not on filedocumented in this encounter
== END 2025-07-01 12:24 | disposition home or self-care (01) ==
LOC: LAB 12:23
PROVIDERS: PCP Internal Medicine; Visit Provider Nurse Practitioner Family
DX: Z01.419 Encounter for gynecological examination (general) (routine) without abnormal findings (principal)
CPT/HCPCS: 88175

== ENCOUNTER 2025-07-03 14:50 | Outpatient (OUT) | payer BC, SELFPAY ==
--- OUTSIDE RECORDS SUMMARY | 2025-07-01 09:00 | XMS_ITS | Encounter Summary ---
Author Organization [facility] Address [address] [place] [place] [address] Care Team Providers Care Cloud Architect Name Role Phone Unavailable Primary Care Provider Unavailabl e Reason for Visit * ReasonCommentsWell Women Visit Encounter Details DateTypeDepartmentCare Team (Latest Contact Info)Wvufxwymrbb83/27/2025 9:00 AM EDTProcedure Visit [facility] [address] [place] [phone] Leida Barkley PA [address] [place] [address] Pelvic pain in female (Primary Dx); Well woman exam with routine gynecological exam; Menorrhagia with regular cycle; Fertility testing; Syncope, unspecified syncope type Social History Tobacco UseTypesPacks/DayYears UsedDateSmoking Tobacco: Never Assessed CommentsUnknownSex and Gender InformationValueDate RecordedSex Assigned at Not on fileLegal EmbTwgubu72/15/2023 7:04 PM EDTGender IdentityNot on fileSexual OrientationNot on filedocumented as of this encounter Last Filed Vital Signs Vital SignReadingTime TakenCommentsBlood Zahhszsv332/801 9:20 AM EDT Pulse--Temperature--Respiratory Rate--Oxygen Saturation--Inhaled Oxygen Concentration--Njkhzw752 kg (237 lb 6.4 oz)07/01/2025 9:20 AM RORLxotmj001.6 cm (5' 6 )07/01/2025 9:20 AM EDTBody [...] nursing note reviewed. Exam conducted with a dobby loom fixer present. Vitals: Estimated body mass index is [...] Plan of Treatment DateTypeDepartmentCare Team (Latest Contact Info)Iozyqzuutwq95/25/2025 8:50 AM ESTOffice Visit [facility] [address] [place] [phone] Jose Manuel Sharpe DO [address] [place] [address] NameTypePriorityAssociated DiagnosesOrder SchedulePap SmearPathology and CytologyRoutine Well [...] regular cycle Expected: 07/01/2025 (Approximate), Expires: 07/01/2026Hemoglobin V6rLcoXyoywqe Menorrhagia with regular cycle Ordered: 07/01/2025ECG 12 lead unit performedECGRoutine Syncope, unspecified syncope type Expected: 07/01/2025 (Approximate), Expires: 07/01/2026documented as of this encounter Procedures Procedure NamePriorityDate/TimeAssociated DiagnosisCommentsPOCT URINALYSIS XKIRAMDBNmphvya98/27/2025 10:15 AM EDT Pelvic pain in female POCT , RRRSFVrigozt46/27/2025 10:13 AM EDT Pelvic pain in female [...] Location / LateralityCollection Method / VolumeCollection TimeReceived XjbpRkhau88/27/2025 10:15 AM EDT Narrative Authorizing ProviderResult TypeResult StatusAmy Filippo PAPOINT OF CARE TEST ENTER/EDIT ORDERABLESFinal Result * POCT , urine manually resulted (07/01/2025 10:13 AM EDT)Component ValueRef RangeTest MethodAnalysis TimePerformed AtPathologist SignaturePreg Test, UrNegativeNegativeSpecimen (Source)Anatomical Location / Laterality Collection Method / VolumeCollection TimeReceived OentNjdtg87/27/2025 10:13 AM EDT Narrative Authorizing ProviderResult TypeResult StatusAmy [place] PAPOINT OF CARE TEST ENTER/EDIT ORDERABLESFinal Result documented in this encounter Visit Diagnoses Diagnosis Pelvic pain in female- Primary Unspecified symptom associated with female genital organs Well woman exam with routine gynecological exam Routine gynecological examination Menorrhagia with regular cycle Fertility testing Syncope, unspecified syncope type documented in this encounter
--- OUTSIDE RECORDS SUMMARY | 2025-07-03 14:56 | XMS_ITS | Encounter Summary ---
Author Organization [facility] Address [address] [place] [address] Care Team Providers Care Defective Cigarette Slitter Name Role Phone Unavailable Primary Care Provider Unavailabl e Encounter Details DateTypeDepartmentCare Team (Latest Contact Info)Jfgcrrtzjyn61/27/2025amboo flowsheet BOB TRIPP [address] [place] [address] Leida Barkley PA [address] [place], [facility] Social History Tobacco UseTypesPacks/DayYears UsedDateSmoking Tobacco: Never Assessed CommentsUnknownSex and Gender InformationValueDate RecordedSex Assigned at Not on fileLegal QqdDmddlp46/15/2023 7:04 PM EDTGender IdentityNot on fileSexual OrientationNot on filedocumented as of this encounter Plan of Treatment DateTypeDepartmentCare Team (Latest Contact Info)Egifyobkfiq08/25/2025 8:50 AM ESTOffice Visit BOB TRIPP [address] [address] Jose Manuel Sharpe DO [address] [facility] [address] [place], [facility] documented as of this encounter Visit Diagnoses Not on filedocumented in this encounter
--- OUTSIDE RECORDS SUMMARY | 2025-07-03 14:56 | XMS_ITS | Encounter Summary ---
Author Organization [facility] Address [address] [facility] [place] [address] Care Team Providers Care Datastage Architect Name Role Phone Unavailable Primary Care Provider Unavailabl e Encounter Details DateTypeDepartmentCare Team (Latest Contact Info)Wvgasubvdkl90/27/2025linisync Result Encounter [facility] External Department Unsolicited Michelle Hagen, SECURITY GUARD DISPATCHER [address] [place] [address] Social History Tobacco UseTypesPacks/DayYears UsedDateSmoking Tobacco: Never Assessed CommentsUnknownSex and Gender InformationValueDate RecordedSex Assigned at Not on fileLegal HtmCdzqmb21/15/2023 7:04 PM EDTGender IdentityNot on fileSexual OrientationNot on filedocumented as of this encounter Plan of Treatment DateTypeDepartmentCare Team (Latest Contact Info)Jpsjkztmqpv78/25/2025 8:50 AM ESTOffice Visit NOMRayna [place] OBGYElvira [address] [place] [address] Jose Manuel Sharpe DO [address] [place] [address] documented as of this encounter Procedures Procedure NamePriorityDate/TimeAssociated DiagnosisCommentsTBH PREG QUANT HCG Nssafng3407/01/2025 10:44 AM EDT SRMCOH PROTHROMBIN TIME INR W/O TKRWPkvlgfd34/27/2025 10:44 AM EDT MLR HEMOGLOBIN L6VUakwojv24/27/2025 10:44 AM EDT [facility] ROHHTamnbwn83/27/2025 10:44 AM EDT ALL THYROXINE (T4) SERJKctgcxt53/27/2025 10:44 AM EDT ALL THYROID STIM ZKZUVMJAbonkeo39/27/2025 10:44 AM EDT ALL CBC WITH AUTO BWMSRqmztlw79/27/2025 10:44 AM EDT IGP,APTIMA HPV,AGE ECHMOacwopb66/27/2025 9:07 AM EDT documented in this encounter Results * [facility] APTT (07/01/2025 10:44 AM EDT)ComponentValueRef RangeTest MethodAnalysis TimePerformed AtPathologist SignaturePARTIAL THROMBOPLASTIN TIME31.322.3 - 36.2 secTBHSpecimen (Source)Anatomical Location / LateralityCollection Method / VolumeCollection TimeReceived Time07/01/2025 10:44 AM EDT1 10:46 AM EDT Dayna ARELLANO - 07/01/2025 12:11 PM EDT Authorizing ProviderResult TypeResult StatusKrodilia Hagen NPCLINISYNCFinal ResultPerforming OrganizationAddressCity/State/ZIP CodePhone Number [facility] * SRMCOH PROTHROMBIN TIME INR W/O COUM (07/01/2025 10:44 AM EDT)ComponentValue Ref RangeTest MethodAnalysis TimePerformed AtPathologist SignaturePROTHROMBIN TIME10.99.0 - 11.6 secTBHTBH INR1.03TBHComment: DESIRED INR: 2.0-3.0 CONDITIONS NOT LISTED BELOW 2.5-3.5 FOR PROSTHETIC HEART VALVE REPLACEMENT 2.5-3.5 RECURRENT THROMBOSIS Specimen (Source)Anatomical Location / LateralityCollection Method / Volume Collection TimeReceived Time07/01/2025 10:44 AM EDT1 10:46 AM EDT Narrative CLINISYKS - 07/01/2025 12:11 PM EDT Authorizing ProviderResult TypeResult StatusWaylonodilia Hagen [facility]ENTERLINISYNCFinia ResultPerforming OrganizationAddressty/State/ZIP CodePhone Number [facility] * TBH PREG QUANT HCG [...] 10:44 AM EDT1 10:46 AM EDT Narrative CLINISYKS - 07/01/2025 11:50 AM EDT Authorizing ProviderResult TypeResult StatusWaylonodilia Hagen [facility]NC[facility] ResultPerforming OrganizationAddressty/State/ZIP CodePhone Number [facility] * ALL THYROID STIM HORMONE (07/01/2025 10:44 AM EDT)ComponentValueRef RangeTest MethodAnalysis TimePerformed AtPathologist SignatureTHYROID STIMULATING HORMONE1.7820.358 - 3.740 uIU/mLTBHSpecimen (Source)Anatomical Location / LateralityCollection Method / VolumeCollection TimeReceived Time07/01/2025 10:44 AM EDT1 10:46 AM EDT Narrative CLINISYNC - 07/01/2025 11:50 AM EDT Authorizing ProviderResult TypeResult StatusMichelle Belloly NPCLINISYNCFinal ResultPerforming OrganizationAddressCity/State/ZIP CodePhone Number [facility] * ALL THYROXINE (T4) FREE (07/01/2025 10:44 AM EDT)ComponentValueRef RangeTest MethodAnalysis TimePerformed AtPathologist SignatureFREE T41.050.76 - 1.46 ng/dLTBHSpecimen (Source)Anatomical Location / LateralityCollection Method / VolumeCollection TimeReceived Time07/01/2025 10:44 AM EDT1 10:46 AM EDT Narrative CLINISYNC - 07/01/2025 11:50 AM EDT Authorizing ProviderResult TypeResult StatusMichelle Hagen [facility]ENTERLINISYNCFinal ResultPerforming OrganizationAddressCity/State/ZIP CodePhone Number [facility] * MLR HEMOGLOBIN A1C (07/01/2025 10:44 AM EDT)ComponentValueRef RangeTest Method Analysis TimePerformed AtPathologist SignatureGLYCOHEMOGLOBIN A1C4.74.5 - 6.2 %TBHComment: ADA RECOMMENDED LIMIT 4.0 - 6.0 ADA THERAPEUTIC TARGET < 7.0 ACTION SUGGESTED > 7.0 ESTIMATED AVERAGE HLIKTYP45xp/dLTBHSpecimen (Source)Anatomical Location / LateralityCollection Method / VolumeCollection TimeReceived Time07/01/2025 10:44 AM EDT1 10:46 AM EDT Narrative CLINISYNC - 07/01/2025 11:13 AM EDT Authorizing ProviderResult TypeResult StatusMichelle Hagen [facility]ENTERLINISYNCFinal ResultPerforming OrganizationAddressCity/State/ZIP CodePhone Number [facility] * (ABNORMAL) ALL CBC WITH AUTO DIFF (07/01/2025 10:44 AM EDT)ComponentValueRef RangeTest MethodAnalysis TimePerformed AtPathologist SignatureTBH WBC9.24.0 - 11.0 10 3/uLTBHTBH RBC4.824.20 - 5.40 10 6/uLTBHTBH HGB15.112.0 - 16.0 g/dLTBH TBH HCT43.636.0 - 48.0 %TBHTBH MCV90.581.0 - 99.0 fLTBHTBH MCH31.326.7 - 34.0 pgTBHTBH MCHC34.629.9 - 35.2 g/dLTBHTBH RDW11.911.0 - 15.0 %TBHTBH DNI481648 - 450 10 3/uLTBHTBH MPV9.4(L)9.5 - 13.5 [...] 07/01/2025 10:53 AM EDT Authorizing ProviderResult TypeResult StatusKristina Xiao NPCLINISYNCFinal ResultPerforming OrganizationAddressCity/State/ZIP CodePhone Number [facility]NC [facility] * IGP,APTIMA HPV,AGE GDLN (07/01/2025 9:07 AM EDT)ComponentValueRef RangeTest MethodAnalysis TimePerformed AtPathologist SignatureAGE GDLN ACOG TESTINGNote. TBHComment: ?? TESTS ? RESULT ??FLAG ??UNITS ?REF RANGE ??LAB ?? Clinician Provided Cytology Information ?? Source.............Cervix;Endocervix ?? No. of containers..01 ThinPrep Vial Age Algo ACOG Frances... ??30-65 ? 01 ?FLAG LEGEND: ?L-Low Normal,H-High Normal,LL-Alert Low,HH-Alert High <-Panic Low,>-Panic High,A-Abnormal,AA-Critical Abnormal Performed at: 01 =G ?[facility] ?? [address] [place] ??[phone] ?? Cari Frost MD, IGP, APTIMA HPV, RFX 16/18,45Note.TBHComment: ?? TESTS ? RESULT ??FLAG ??UNITS ?REF RANGE ??LAB DIAGNOSIS: ?02 ?? NEGATIVE FOR INTRAEPITHELIAL LESION OR MALIGNANCY. Specimen adequacy: ?02 ?? Satisfactory for evaluation. ??Endocervical and/or squamous metaplastic ?? cells (endocervical component) are present. Performed by: ? 02 ?? Norma Vargas [employer] Project Manager (ASCP) . ? 02 Note: ? Note ?02 ?? The Pap smear is a screening test designed to aid in the ?? detection of premalignant and malignant conditions of the ?? uterine cervix. ??It is not a diagnostic procedure and ?? should not be used as the sole means of detecting cervical ?? cancer. ??Both false-positive and false-negative reports do ?? occur. Test Methodology: ? Note ?02 ?? This liquid based ThinPrep(R) pap test was interpreted ?? using the WealthEngine(R) Genius(TM) Cervical Algorithm whole ?? slide imaging system. HPV Genotype Reflex ?? Note ?02 ?? Criteria not met, HPV Genotype not performed. ?FLAG LEGEND: ?L-Low Normal,H-High Normal,LL-Alert Low,HH-Alert High <-Panic Low,>-Panic High,A-Abnormal,AA-Critical Abnormal Performed at: 02 WB ?[facility] [place] ?? [address] [place], [place] ??[phone] ?? Cari Frost MD, HPV APTIMANegativeNegativeTBHComment: This nucleic acid amplification test detects fourteen high- risk HPV types (16,18,31,33,35,39,45,51,52,56,58,59,66,68) without differentiation. Performed at: ??=G - [facility] ??[id number] Animation Camera Operator: Cari Frost MD, Phone: ??[phone] Performed at: ?? - [facility] ??[id number] Animation Camera Operator: Cari Frost MD, Phone: ??[phone] Specimen (Source)Anatomical Location / LateralityCollection Method / Volume Collection TimeReceived Time07/01/2025 9:07 AM EDT1 12:58 PM EDT Narrative CLINISYNC - 07/03/2025 2:09 PM EDT BRUSH-SPATULA CERVIX ENDOCERVIX Authorizing ProviderResult TypeResult StatusMichelle Hagen LAB BLOOD ORDERABLESFinal ResultPerforming OrganizationAddressCity/State/ZIP CodePhone Number [facility]ISYFORMERLY [facility] documented in this encounter Visit Diagnoses Not on filedocumented in this encounter
--- OUTSIDE RECORDS SUMMARY | 2025-07-03 14:56 | XMS_ITS | Clinical Summary ---
Author Organization Applico s tem Address [id number] [address] [place] [address] Care Team Providers Care Shader And Toner Name Role Phone Jerry Orozco MD Primary Care Provider Allergies Active AllergyReactionsCriticalityNoted DvloKvhgdqnkRymkpxwpsquFojhNnx30/16/2017 Medications MedicationSigDispense QuantityRefillsLast FilledStart DateEnd DateStatus semaglutide 0.25 mg or 0.5 mg(2 mg/1.5 mL) pen injector Inject under the skin every 7 days.Active escitalopram (LEXAPRO) 10 mg tablet Indications:AnxietyTake 1 tablet (10 mg total) by mouth in the morning. 90 tablet 5Active Active Problems ProblemNoted DateDiagnosed DateAmenorrhea, mopwyehdg27/13/2018 Encounters DateTypeDepartmentCare YmvtVkgqbjrjfeb15/22/2025 3:15 PM EDTOffice Visit [facility] [address] [place] [address] Jerry Orozco MD Anxiety (Primary Dx)04/26/20258318Txthac83/13/2025Refill [facility] [address] [place] [address] Jerry Orozco MD Depression, unspecified depression typefrom Last 3 Months Immunizations ImmunizationAdministration DatesNext DueCOVID-19, mRNA, LNP-S, PF, 100mcg/0.5mL Dose08/09/2021,12/31/2020,12/03/2020 Family History Medical HistoryRelationNameCommentsHypertensionFatherHypertensionMaternal GrandfatherCholecystitisMaternal GrandmotherHeart diseaseMaternal Grandmother HypertensionMaternal UncleGallbladder diseaseMotherRelationNameStatusComments FatherAliveMaternal GrandfatherMaternal GrandmotherDeceasedMaternal UncleMother Alive Social History Tobacco UseTypesPacks/DayYears UsedDateSmoking Tobacco: NeverSmokeless Tobacco: Never Tobacco Cessation:Counseling Given: No Alcohol UseStandard Drinks/WeekCommentsNo0 (1 standard drink = 0.6 oz pure alcohol)PHQ-2AnswerDate RecordedTotal Lfkbf5725ChildcareAnswerDate LjpkiowzBdavzpwclGgoygff20/12/2019EmploymentAnswerDate RecordedEmploymentUnknown 02/14/2019Hunger ScreeningAnswerDate RecordedWithin the past 12 months we worried whether our food would run out before we got money to buy more.Never True04/26/2025Within the past 12 months the food we bought just didn't last and we didn't have money to get more.Never True04/26/2025Purpose - LifeAnswerDate RecordedPurpose and direction in gjvbWlesjka73/11/2021CommentsNoSex and Gender InformationValueDate RecordedSex Assigned at BirthNot on fileLegal Sex Fbuowd1904/10/2015 11:48 AM EDTGender IdentityNot on fileSexual OrientationNot on file Last Filed Vital Signs Vital SignReadingTime TakenCommentsBlood Xqqbhmzh520/8404/26/2025 3:09 PM EDT Gmtzt42708/22/2025 3:09 PM QQGXxlftyiraay35.4 ??C (97.6 ??F)04/26/2025 3:09 PM EDTRespiratory Xsvo057709/16/2018 12:15 PM ESTOxygen Yapnjthlwu78%2019 12:15 PM ESTInhaled Oxygen Concentration--Bvirgs578.5 kg (250 lb 3.2 oz)04/26/2025 3:09 PM FXEHdnoiq592.3 cm (5' 6.26 )04/26/2025 3:09 PM EDTBody Mass Index40.07 04/26/2025 3:09 PM EDT Plan of Treatment Health MaintenanceDue DateLast DoneCommentsAdult BMI Follow Up Plan2011 DTaP,Tdap and Td Vaccines (1 - Tdap)2012Pap Smear2014COVID-19 Vaccine (4 - 2024- season)/01/2021, 12/31/2020, 12/03/2020 Influenza Ahcppzg0905/06/2025dult BMI Xbagrhqzs21Depression Zjdqnifpf81Tobacco Yaapsbske88 [employer] Devices Not on file Insurance * Guarantor: Carmelita Nunez TypeRelation to PatientDate of PhoneBilling [id number] [address] [place] [address] Care Teams Team MemberRelationshipSpecialtyStart DateEnd Date Jerry Orozco MD [address] [place] [address], [address] [place] [address] PCP - GeneralPediatric02/15/18
--- OUTSIDE RECORDS SUMMARY | 2025-07-03 14:56 | XMS_ITS | Clinical Summary ---
Author Organization [facility] Address [address] [address] Care Team Providers Care Carpet Winder Name Role Phone Unavailable Primary Care Provider Unavailabl e Social History Tobacco UseTypesPacks/DayYears UsedDateSmoking Tobacco: Never Assessed CommentsUnknownSex and Gender InformationValueDate RecordedSex Assigned at Not on fileLegal IrzPvfvnj03/29/2025 11:19 AM EDTGender IdentityNot on file Sexual OrientationNot on file Plan of Treatment DateTypeDepartmentCare Team (Latest Contact Info)Fdcshtnharg34/08/2025 10:00 AM ESTOffice Visit [facility] [address] [place] [address] Tori Nava MD [address] MS[address] [place] [address] Health MaintenanceDue DateLast DoneCommentsDepression Agftognox73/12/2005 Varicella Vaccines (1 of 2 - 13+ 2-dose series)2006Pap Smear2014 Adult Mfnbttm0607/17/2015HPV Vaccines (1 - 3-dose SCDM series)2020Cervical Cancer Gmalficrc10/12/2023HPV/Bpzqvp4207/17/2023Influenza Vaccine (#1)2025 Zoster Vaccines (1 of 2)2043HIB VaccinesAged OutNo longer eligible based on patient's age to complete this topicIPV VaccinesAged OutNo longer eligible based on patient's age to complete this topicMeningococcal B VaccineAged OutNo longer eligible based on patient's age to complete this topicMeningococcal VaccineAged OutNo longer eligible based on patient's age to complete this topic Pneumococcal Vaccine: Pediatrics (0 to 5 Years) and At-Risk Patients (6 to 64 Years)Aged OutNo longer eligible based on patient's age to complete this topic Rotavirus VaccinesAged OutNo longer eligible based on patient's age to complete this topic Insurance
--- OUTSIDE RECORDS SUMMARY | 2025-07-03 14:56 | XMS_ITS | Clinical Summary ---
Author Organization [facility] Address [address] [place] [address] Care Team Providers Care Armor Reconnaissance Vehicle Crewman Name Role Phone Unavailable Primary Care Provider Unavailabl e Social History Tobacco UseTypesPacks/DayYears UsedDateSmoking Tobacco: Never Assessed CommentsUnknownSex and Gender InformationValueDate RecordedSex Assigned at Not on fileLegal OgmJlucgx16/08/2022 10:52 AM EDTGender IdentityNot on file Sexual OrientationNot on file Plan of Treatment Health MaintenanceDue DateLast DoneCommentsAnxiety Asqcsdipu84/12/2011Depression Qcxmqzotv30/12/2011HIV Bavmsvonn29/12/2011Hepatitis C Kpnttcnqj54/12/2011 DTaP,Tdap,Td Vaccine (1 - Tdap)2012Hepatitis B Vaccine (1 of 3 - 19+ 3- dose series)2012Cervical Cancer Vflcdfspq70/12/2014HPV Vaccine (1 - 3-dose SCDM series)2020Covid-19 Vaccine ( season), 12/31/2020, 12/03/2020Influenza Vaccine (#1)2025
--- OUTSIDE RECORDS SUMMARY | 2025-07-03 14:56 | XMS_ITS | Clinical Summary ---
Author Organization [facility] Address [address] [place] [address] Care Team Providers Care Manager Drug Name Role Phone Unavailable Primary Care Provider Unavailabl e Encounters DateTypeDepartmentCare NbeqSqmfynxwmaq20/27/2025 9:00 AM EDTProcedure Visit [facility] [address] [place] [address] Leida Barkley PA Pelvic pain in female (Primary Dx); Well woman exam with routine gynecological exam; Menorrhagia with regular cycle; Fertility testing; Syncope, unspecified syncope type5Clinisync Result Encounter [facility] Unsolicited Michelle Hagen NP 5Bamboo flowsheet [facility] [address] [place] [address] Leida Barkley PA from Last 3 Months Social History Tobacco UseTypesPacks/DayYears UsedDateSmoking Tobacco: Never Assessed CommentsUnknownSex and Gender InformationValueDate RecordedSex Assigned at Not on fileLegal QlbBupiav85/15/2023 7:04 PM EDTGender IdentityNot on fileSexual OrientationNot on file Last Filed Vital Signs Vital SignReadingTime TakenCommentsBlood Gvnevjkn045/801 9:20 AM EDT Pulse--Temperature--Respiratory Rate--Oxygen Saturation--Inhaled Oxygen Concentration--Wcexqb951 kg (237 lb 6.4 oz)07/01/2025 9:20 AM ZLCLkfvdj404.6 cm (5' 6 )07/01/2025 9:20 AM EDTBody Mass Index38.321 9:20 AM EDT Plan of Treatment DateTypeDepartmentCare Team (Latest Contact Info)Hhduntqafoi67/25/2025 8:50 AM ESTOffice Visit [facility] [address] [place] [id number] Jose Manuel Sharpe, [address] [facility] [place] [address] Health MaintenanceDue DateLast DoneCommentsMMR Vaccines (1 of 1 - Standard series)1994DTaP/Tdap/Td Vaccines (1 - Tdap)2000Varicella Vaccines (1 of 2 - 13+ 2-dose series)2006Hepatitis B Vaccines (1 of 3 - 19+ 3-dose series)2012Pap Smear2014HPV Vaccines (1 - 3-dose SCDM series) 2020Cervical Cancer Lfnvnwsvl03/12/2023HPV/Izghae853COVID-19 Vaccine ( season)/01/2021, 12/31/2020, 12/03/2020 Influenza Vaccine [...] AM EDT SRMCOH PROTHROMBIN TIME INR W/O WHAMFgfqcgf73/27/2025 10:44 AM EDT TBH PREG QUANT CJIZnyfvzf80/27/2025 10:44 AM EDT ALL THYROID STIM WQREPCDSublexi35/27/2025 10:44 AM EDT ALL THYROXINE (T4) XXXGLxrzcdz36/27/2025 10:44 AM EDT MLR HEMOGLOBIN S3FBdnjlyw76/27/2025 10:44 AM EDT ALL CBC WITH AUTO JTTLQwiwrlr02/27/2025 10:44 AM EDT POCT URINALYSIS MOQIOGFDMlopdvj91/27/2025 10:15 AM EDT Pelvic pain in female POCT , XBUAXVimaqch84/27/2025 10:13 AM EDT Pelvic pain in female IGP,APTIMA HPV,AGE WCZBBaijrkd58/27/2025 9:07 AM EDT from Last 3 Months Results * [facility]H PREG QUANT HCG (07/01/2025 10:44 AM EDT)ComponentValueRef RangeTest Method Analysis TimePerformed AtPathologist SignatureHCG QUANTITATIVE<1mIU/mLTBH Comment: 5-50 ? 0.2-1 WEEK 50-500 ? 1-2 WEEKS 100-5,000 ?2-3 WEEKS 500-10,000 ? 3-4 WEEKS 1,000-50,000 ?? 4-5 WEEKS 10,000-100,000 5-6 WEEKS 15,000-200,000 6-8 WEEKS 10,000-100,000 2-3 MONTHS Specimen (Source)Anatomical Location / LateralityCollection Method / Volume Collection TimeReceived Time10/ 10:44 AM EDT1 10:46 AM EDT Narrative [facility] - 07/01/2025 11:50 AM EDT Authorizing ProviderResult TypeResult StatusMichelle Hagen NPCLINISYNCFinal ResultPerforming OrganizationAddressCity/State/ZIP CodePhone Number [facility] * SRMCOH PROTHROMBIN TIME INR W/O COUM (07/01/2025 10:44 AM EDT)ComponentValue Ref RangeTest MethodAnalysis TimePerformed AtPathologist SignaturePROTHROMBIN TIME10.99.0 - 11.6 secTBHTBH INR1.03TBHComment: DESIRED INR: 2.0-3.0 CONDITIONS NOT LISTED BELOW 2.5-3.5 FOR PROSTHETIC HEART VALVE REPLACEMENT 2.5-3.5 RECURRENT THROMBOSIS Specimen (Source)Anatomical Location / LateralityCollection Method / Volume Collection TimeReceived Time07/01/2025 10:44 AM EDT1 10:46 AM EDT Narrative [facility] - 07/01/2025 12:11 PM EDT Authorizing ProviderResult TypeResult StatusMichelle Chestererly RONALDLINISYNCFinal ResultPerforming OrganizationAddressCity/State/ZIP CodePhone Number [facility] * MLR HEMOGLOBIN A1C (07/01/2025 10:44 AM EDT)ComponentValueRef RangeTest Method Analysis TimePerformed AtPathologist SignatureGLYCOHEMOGLOBIN A1C4.74.5 - 6.2 %TBHComment: ADA RECOMMENDED LIMIT 4.0 - 6.0 ADA THERAPEUTIC TARGET < 7.0 ACTION SUGGESTED > 7.0 ESTIMATED AVERAGE ZOJARPF78yc/dLTBHSpecimen (Source)Anatomical Location / LateralityCollection Method / VolumeCollection TimeReceived Time07/01/2025 10:44 AM EDT1 10:46 AM EDT Narrative [facility] - 07/01/2025 11:13 AM EDT Authorizing ProviderResult TypeResult StatusMichelle Hagen NPCLINISYNCFinal ResultPerforming OrganizationAddressCity/State/ZIP CodePhone Number [facility] * CCF APTT (07/01/2025 10:44 AM EDT)ComponentValueRef RangeTest MethodAnalysis TimePerformed AtPathologist SignaturePARTIAL THROMBOPLASTIN TIME31.322.3 - 36.2 secTBHSpecimen (Source)Anatomical Location / LateralityCollection Method / VolumeCollection TimeReceived Time07/01/2025 10:44 AM EDT1 10:46 AM EDT Narrative [facility] - 07/01/2025 12:11 PM EDT Authorizing ProviderResult TypeResult StatusMichelle Hagen NPCLINISYNCFinal ResultPerforming OrganizationAddressCity/State/ZIP CodePhone Number [facility] * ALL THYROXINE (T4) FREE (07/01/2025 10:44 AM EDT)ComponentValueRef RangeTest MethodAnalysis TimePerformed AtPathologist SignatureFREE T41.050.76 - 1.46 ng/dLTBHSpecimen (Source)Anatomical Location / LateralityCollection Method / VolumeCollection TimeReceived Time07/01/2025 10:44 AM EDT1 10:46 AM EDT Narrative [facility] - 07/01/2025 11:50 AM EDT Authorizing ProviderResult TypeResult StatusMichelle Hagen [facility]ITALLINISYNCEastern [facility] Hospitalal ResultPerforming OrganizationAddressCity/State/ZIP CodePhone Number [facility] * ALL THYROID STIM HORMONE (07/01/2025 10:44 AM EDT)ComponentValueRef RangeTest MethodAnalysis TimePerformed AtPathologist SignatureTHYROID STIMULATING HORMONE1.7820.358 - 3.740 uIU/mLTBHSpecimen (Source)Anatomical Location / LateralityCollection Method / VolumeCollection TimeReceived Time07/01/2025 10:44 AM EDT1 10:46 AM EDT Narrative [facility] - 07/01/2025 11:50 AM EDT Authorizing ProviderResult TypeResult StatusMichelle Hagen [facility]ITALLINISYNCFinal ResultPerforming OrganizationAddressCity/State/ZIP CodePhone Number [facility] * (ABNORMAL) ALL CBC WITH AUTO DIFF (07/01/2025 10:44 AM EDT)ComponentValueRef RangeTest MethodAnalysis TimePerformed AtPathologist SignatureTBH WBC9.24.0 - 11.0 10 3/uLTBHTBH RBC4.824.20 - 5.40 10 6/uLTBHTBH HGB15.112.0 - 16.0 g/dLTBH TBH HCT43.636.0 - 48.0 %TBHTBH MCV90.581.0 - 99.0 fLTBHTBH MCH31.326.7 - 34.0 pgTBHTBH MCHC34.629.9 - 35.2 g/dLTBHTBH RDW11.911.0 - 15.0 %TBHTBH [address] - 450 10 3/uLTBHTBH MPV9.4(L)9.5 - 13.5 [...] Hagen NPCLINISYNCFinal ResultPerforming OrganizationAddressCity/State/ZIP CodePhone Number [facility] * (ABNORMAL) POCT urinalysis dipstick manually resulted [...] Location / LateralityCollection Method / VolumeCollection TimeReceived IntnRknur42/27/2025 10:15 AM EDT Narrative Authorizing ProviderResult TypeResult StatusAmy Ashland PAPOINT OF CARE TEST ENTER/EDIT ORDERABLESFinal Result * POCT , urine manually resulted (07/01/2025 10:13 AM EDT)Component ValueRef RangeTest MethodAnalysis TimePerformed AtPathologist SignaturePreg Test, UrNegativeNegativeSpecimen (Source)Anatomical Location / Laterality Collection Method / VolumeCollection TimeReceived AlpmLwpgg04/27/2025 10:13 AM EDT Narrative Authorizing ProviderResult TypeResult StatusAmy Filippo PAPOINT OF CARE TEST ENTER/EDIT ORDERABLESFinal Result * IGP,APTIMA HPV,AGE GDLN (07/01/2025 9:07 AM [...] at: 01 =G ?[facility] [place] ?? [address] [place] ??[phone] ?? Cari Frost MD, IGP, APTIMA HPV, RFX 16/18,45Note.TBHComment: ?? TESTS ? RESULT ??FLAG ??UNITS ?REF RANGE ??LAB DIAGNOSIS: ?02 ?? NEGATIVE FOR INTRAEPITHELIAL LESION OR MALIGNANCY. Specimen adequacy: ?02 ?? Satisfactory for evaluation. ??Endocervical and/or squamous metaplastic ?? cells (endocervical component) are present. Performed by: ? 02 ?? Norma Vargas Form Builder (ASCP) . ? 02 Note: ? Note [...] pap test was interpreted ?? using the [employer](R) Genius(TM) Cervical Algorithm whole ?? slide imaging system. HPV Genotype Reflex ?? Note ?02 ?? Criteria not met, HPV Genotype not performed. ?FLAG LEGEND: ?L-Low Normal,H-High Normal,LL-Alert Low,HH-Alert High <-Panic Low,>-Panic High,A-Abnormal,AA-Critical Abnormal Performed at: 02 WB ?[facility] [place] ?? [address] [place], [place] ??[phone] ?? Cari Frost MD, HPV APTIMANegativeNegativeTBHComment: This nucleic acid amplification test detects fourteen high- risk HPV types (16,18,31,33,35,39,45,51,52,56,58,59,66,68) without differentiation. Performed at: ??=G - [facility] [address] ??[id number] Judicial Law Clerk: Cari Frost MD, Phone: ??[phone] Performed at: ??WB - [facility] [address] ??[id number] Judicial Law Clerk: Cari Frost MD, Phone: ??[phone] Specimen (Source)Anatomical Location / LateralityCollection Method / Volume Collection TimeReceived Time07/01/2025 9:07 AM EDT1 12:58 PM EDT Narrative [facility] - 07/03/2025 2:09 PM EDT BRUSH-SPATULA CERVIX ENDOCERVIX Authorizing ProviderResult TypeResult StatusMichelle Hagen NPLAB BLOOD ORDERABLESFinal ResultPerforming OrganizationAddressCity/State/ZIP CodePhone Number [facility] from Last 3 Months Insurance
--- NOTE | 2025-07-03 14:57 | US_ITS ---
[address] [address] Patient Name: CLARK PULLIAM MRN: [id number] date: 1995 Sex: F Assigned Patient Location: US Current Patient Location: LAB Accession/Order Number: [id number] Exam Date: 07/03/2025 15:00 Report Date: 07/03/2025 21:41 At the request of: NICOLASA BRADSHAW Procedure: US pelvis w/ transvaginal Ultrasound pelvis with transvaginal INDICATION: Pelvic pain with female COMPARISON: None FINDINGS: Anteverted uterus measuring 8.7 x 3.5 x 5.3 cm in size. Endometrial thickness 1 cm. Multiple nabothian cysts within cervix. A small amount of fluid in cul-de-sac. Right ovary 2.3 x 1.9 x 2.5 cm, Unremarkable. Left ovary 2.8 x 2.4 x 2.4 cm, unremarkable. US/US pelvis w/ transvaginal IMPRESSION: Unremarkable pelvic ultrasound, physiologic findings. Impression dictated by: Wyatt Donaldson M.D. 07/03/2025 9:41 PM Dictation Location: [place] [address] Electronically authenticated by: [id number] Y Date: 07/03/2025 21:41
--- NOTE | 2025-07-03 15:29 | ECG_ITS ---
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
== END 2025-07-03 14:51 | disposition home or self-care (01) ==
LOC: US 14:53
PROVIDERS: PCP Internal Medicine; Visit Provider Nurse Practitioner Family
DX: R10.20 Pelvic and perineal pain unspecified side (principal); R55 Syncope and collapse
CPT/HCPCS: 76830; 76856; 93005

== ENCOUNTER 2025-08-30 15:15 | Outpatient (OUT) | payer BC, SELFPAY ==
--- OUTSIDE RECORDS SUMMARY | 2025-08-30 10:00 | XMS_ITS | Encounter Summary ---
Author Organization [facility] [employer] [facility] tem Address [id number] [address] [place] [address] Care Team Providers Care Client Partner Name Role Phone Jerry Orozco MD Primary Care Provider [phone] Reason for Visit * ReasonCommentsCoughSOB started Tue.Sore Throat Encounter Details DateTypeDepartmentCare Team (Latest Contact Info)Srshqafpjla98/26/2025 10:00 AM ESTOffice Visit [facility] [address] [place] [address] [address] [place] [address] Jerry Orozco MD [address] [place] [address], [address] [place] [address] Bronchitis (Primary Dx) Social History Tobacco UseTypesPacks/DayYears UsedDateSmoking Tobacco: NeverSmokeless Tobacco: NeverAlcohol UseStandard Drinks/WeekCommentsNo0 (1 standard drink = 0.6 oz pure alcohol)PHQ-2AnswerDate RecordedTotal Nntox3725ChildcareAnswerDate IwdguhzhDjabokjqzYiiunvv18/12/2019EmploymentAnswerDate RecordedEmploymentUnknown 02/14/2019Hunger ScreeningAnswerDate RecordedWithin the past 12 months we worried whether our food would run out before we got money to buy more.Never True04/26/2025Within the past 12 months the food we bought just didn't last and we didn't have money to get more.Never True04/26/2025Purpose - LifeAnswerDate RecordedPurpose and direction in mxczEsldfhz17/11/2021CommentsNoSex and Gender InformationValueDate RecordedSex Assigned at BirthNot on fileLegal Sex Msesiq3104/10/2015 11:48 AM EDTGender IdentityNot on fileSexual OrientationNot on filedocumented as of this encounter Last Filed Vital Signs Vital SignReadingTime TakenCommentsBlood Mpghqmch774/9108/30/2025 10:04 AM EST Tidjj2145/26/2025 10:04 AM FIDYgylwqjmudu61.7 ??C (98 ??F)08/30/2025 10:04 AM ESTRespiratory Rate--Oxygen Djqhfqnxdz10%08/30/2025 10:04 AM ESTInhaled Oxygen Concentration--Trhtld218 kg (253 lb 9.6 oz)08/30/2025 10:04 AM LKTKjguxa839.3 cm (5' 6.26 )08/30/2025 10:04 AM ESTBody Mass Index40. 10:04 AM EST documented in this encounter Functional Status * BPAnswerDate of MpyqphjtmlDrjtav326/ 10:04 AM Siria Clayton RMA * TempAnswerDate of QqxqzxlgwrDdjjdj6587/26/2025 10:04 AM Siria Clayton, RMA * Temp srcAnswerDate of AxyswrxtllTtmsfyLhpxvamj88/26/2025 10:04 AM Siria Clayton RMA * PulseAnswerDate of RkfnhzcobvIylwfr5904/26/2025 10:04 AM Siria Clayton, RMA * GrW7HnwopiYdfk of CaxzgcqcflEonegx1450/26/2025 10:04 AM Siria Clayton RMA * HeightAnswerDate of ShejikxwoyBprdjd02.26110/31/2024 10:04 AM Siria Clayton, RMA * WeightAnswerDate of XnayzcpqvdLukfds3873.6110/31/2024 10:04 AM Siria Clayton RMA * BEE (kcal)AnswerDate of XgpydovtzdDbanvu739121/26/2025 10:04 AM ESTKramer, Siria, RMA * BSA (Calculated - sq m)AnswerDate of AssessmentAuthor2.32110/31/2024 10:04 AM ESTKramer, Siria, RMA * BMI (Calculated)AnswerDate of KdmtdermmsDhjsal50.6110/31/2024 10:04 AM EST Nick, Siria, RMA * Weight in (lb) to have BMI = 25AnswerDate of WxvywjygmvYplbfh464.8110/31/2024 10:04 AM ESTKramer, Siria, RMA * BPAnswerDate of MxjsrlikleWkcuba372/9108/30/2025 10:04 AM ESTKramer, Siria, RMA * TempAnswerDate of EayqiqbrpcAiunfp0707/26/2025 10:04 AM ESTKramer, Siria, RMA * Temp srcAnswerDate of WvilnervoxZmqvltDqwzvpux51/26/2025 10:04 AM ESTSandoval Siria, RMA * PulseAnswerDate of AduadulzweEnifgh3109/26/2025 10:04 AM ESTKramer, Siria, RMA * QwN4AjcssoEror of UkaulxqgziVqblms4321/26/2025 10:04 AM ESTSandoval, Siria, RMA * HeightAnswerDate of GrdwungmftIrrady83.26110/31/2024 10:04 AM ESTKramer, Siria, RMA * WeightAnswerDate of NfdlhsyxqoItqkvj4094.6110/31/2024 10:04 AM ESTSandoval, Siria, RMA * BEE (kcal)AnswerDate of JaghzhusqkSgfini107161/26/2025 10:04 AM ESTKramer, Siria, RMA * BSA (Calculated - sq m)AnswerDate of AssessmentAuthor2.32110/31/2024 10:04 AM ESTKramer, Siria, RMA * BMI (Calculated)AnswerDate of TrtydwuhnzAlqaxn24. 10:04 AM EST Nick, Siria, RMA * Weight in (lb) to have BMI = 25AnswerDate of GncjpxhlshEvlvmd497.8110/31/2024 10:04 AM ESTKramer Siria, RMA documented as of this encounter Mental Status * BPAnswerEntry EogfJldfly725/9108/30/2025 10:04 AM Siria Clayton RMA * TempAnswerEntry DcnvXtshlw5302/26/2025 10:04 AM Siria Clayton RMA * Temp srcAnswerEntry UbzlRdpzofZlfcqoip60/26/2025 10:04 AM Siria Clayton RMA * PulseAnswerEntry KzisTwbvox9571/26/2025 10:04 AM Siria Clayton RMA * CpD4SchxjuPuxgb JzohWcyxbm2912/26/2025 10:04 AM Siria Clayton RMA documented in this encounter Progress Notes * Jerry Orozco MD - 08/30/2025 10:00 AM EST Subjective Patient ID: Carmelita Nunez is a 30 y.o. female. She started a few days ago with chest heaviness and congestion and then developed a productive cough. No high fever or shortness a breath. Now her throat hurts and her voices a little bit hoarse. The following portions of the patient's history were reviewed and updated as appropriate: allergies, current medications, past medical history, and problem list. Review of Systems Objective Physical Exam Constitutional: Comments: Afebrile and not toxic. No stridor. HENT: Right Ear: Tympanic membrane normal. Left Ear: Tympanic membrane normal. Nose: Comments: Minor nasal congestion Mouth/Throat: Pharynx: Posterior oropharyngeal erythema present. No oropharyngeal exudate. Comments: No oral lesions Cardiovascular: Rate and Rhythm: Normal rate and regular rhythm. Pulmonary: Comments: Good air flow bilaterally. A few scattered rhonchi. Lymphadenopathy: Cervical: No cervical adenopathy. Assessment/Plan Symptomatic treatment otherwise and if this does not resolve or something more develops she will let me know. Diagnoses and all orders for this visit: Bronchitis - azithromycin (ZITHROMAX) 250 mg tablet; Take 2 tablets the first day, then 1 tablet daily for 4 days. documented in this encounter Plan of Treatment Not on file documented as of this encounter Visit Diagnoses Diagnosis Bronchitis- Primary Bronchitis, not specified as acute or chronic documented in this encounter Additional Health Concerns AssessmentNoted TimePHQ-9 Depression Total Score: 008 3:09 PM EDT documented as of this encounter Care Teams Team MemberRelationshipSpecialtyStart DateEnd Date Jerry Orozco MD [address] [place] [address], [address] [place] [address] PCP - GeneralPediatric02/15/18documented as of this encounter
--- OUTSIDE RECORDS SUMMARY | 2025-08-30 15:18 | XMS_ITS | Clinical Summary ---
Author Organization [facility] Address [address] [place] [address] Care Team Providers Care Financial Compliance Officer Name Role Phone Unavailable Primary Care Provider Unavailabl e Social History Tobacco UseTypesPacks/DayYears UsedDateSmoking Tobacco: Never Assessed CommentsUnknownSex and Gender InformationValueDate RecordedSex Assigned at Not on fileLegal YprKqekey26/08/2022 10:52 AM EDTGender IdentityNot on file Sexual OrientationNot on file Plan of Treatment Health MaintenanceDue DateLast DoneCommentsAnxiety Nxaenaxkq54/12/2011Depression Igqrwnosa87/12/2011HIV Qbcphlkvq80/12/2011Hepatitis C Iwxxqcwfm66/12/2011 DTaP,Tdap,Td Vaccine (1 - Tdap)2012Hepatitis B Vaccine (1 of 3 - 19+ 3- dose series)2012Cervical Cancer Xvincfxcm12/12/2014HPV Vaccine (1 - 3-dose SCDM series)2020Covid-19 Vaccine ( season), 12/31/2020, 12/03/2020Influenza Vaccine (#1)2025
--- OUTSIDE RECORDS SUMMARY | 2025-08-30 15:18 | XMS_ITS | Clinical Summary ---
Author Organization [facility] Address [address] [facility] [place] [address] Care Team Providers Care Supervisor Final Name Role Phone Unavailable Primary Care Provider Unavailabl e Allergies Active AllergyReactionsCriticalityNoted IsxwWvahlxnpYimriecdeueHoygUbn85/16/2017 Medications MedicationSigDispense QuantityRefillsLast FilledStart DateEnd DateStatus letrozole (Femara) 2.5 MG chemo tablet Indications:Fertility testingTake 1 tablet (2.5 mg total) by mouth Daily for 5 days. 5 tablet Expired Encounters DateTypeDepartmentCare BpktKovgfmplfmo60/08/2025Telephone [facility] [address] [place] [address] Jose Manuel Sharpe DO 07/30/2025 8:50 AM ESTOffice Visit [facility] [address] [place] [address] [place] [address] Jose Manuel Sharpe DO Pelvic pain; Menorrhagia with regular cycle07/30/2025amboo flowsheet [facility] [address] [place] [address] Jose Manuel Sharpe DO 07/24/2025Orders Only [facility] [address] [facility] [address] Lorena Cantu MA 5Clinisync Result Encounter NOMS External Department Unsolicited Michelle Hagen NP 07/03/2025linisync Result Encounter NOMS External Department Unsolicited Xiao MichelleYVONNE hartley 07/01/2025 9:00 AM EDTProcedure Visit [facility] [address] [facility] [place] [address] Leida Barkley, PA Pelvic pain in female (Primary Dx); Well woman exam with routine gynecological exam; Menorrhagia with regular cycle; Fertility testing; Syncope, unspecified syncope type07/01/2025linisync Result Encounter NOMS External Department Unsolicited Michelle Hagen NP 07/01/2025amboo flowsheet [facility] [address] [facility] [place] [address] Leida Barkley PA from Last 3 Months Social History Tobacco UseTypesPacks/DayYears UsedDateSmoking Tobacco: Never Assessed CommentsUnknownSex and Gender InformationValueDate RecordedSex Assigned at Not on fileLegal NtfCdvnxc18/15/2023 7:04 PM EDTGender IdentityNot on fileSexual OrientationNot on file Last Filed Vital Signs Vital SignReadingTime TakenCommentsBlood Morgtylj539/7007/30/2025 8:51 AM EST Pulse--Temperature--Respiratory Rate--Oxygen Saturation--Inhaled Oxygen Concentration--Qsdpsm594 kg (259 lb)07/30/2025 8:51 AM BHMYuimxf843.6 cm (5' 6 ) 07/01/2025 9:20 AM EDTBody Mass Index41.81 9:20 AM EDT Plan of Treatment DateTypeDepartmentCare Team (Latest Contact Info)Zuvwnilfkib52/24/2026 8:40 AM EDTOffice Visit [facility] [address] [facility] [place] [address] Jose Manuel Sharpe DO [address] [facility] [address] [place] [place], [place] [address] Health MaintenanceDue DateLast DoneCommentsHPV/Uttbvp5707/17/2023Influenza Vaccine (#1)5Cervical Cancer Eqjxkbfzh03/27/2028Pap Smear81 Pneumococcal Vaccine: Pediatrics (0 to 5 Years) and At-Risk Patients (6 to 64 Years)Aged OutNo longer eligible based on patient's age to complete this topic Procedures Procedure NamePriorityDate/TimeAssociated DiagnosisCommentsUS PELVIS W/ AEEQEAYHBAGL11/29/2025 9:41 PM EDT ECG 12-LEAD07/03/2025 3:35 PM EDT [facility] XNQAQoqmuak45/27/2025 10:44 AM EDT SRMCOH PROTHROMBIN TIME INR W/O IIRRWkuvfny96/27/2025 10:44 AM EDT [facility] PREG QUANT CPWYpbssnu45/27/2025 10:44 AM EDT ALL THYROID STIM YLFTICMIinyqdt19/27/2025 10:44 AM EDT ALL THYROXINE (T4) XVKYPnhqltw91/27/2025 10:44 AM EDT MLR HEMOGLOBIN C4WDrzrzmn22/27/2025 10:44 AM EDT ALL CBC WITH AUTO SIUYKrxakzm68/27/2025 10:44 AM EDT POCT URINALYSIS AQMKEHHOFjxudmk19/27/2025 10:15 AM EDT Pelvic pain in female POCT , WTUEDXxgrlcf59/27/2025 10:13 AM EDT Pelvic pain in female IGP,APTIMA HPV,AGE AJNJZantzcb22/27/2025 9:07 AM EDT PAP TEST, WPUMBBKYBkpakdg00/27/2025 12:00 AM EDTfrom Last 3 Months Results * US PELVIS W/ TRANSVAGINAL (07/03/2025 9:41 PM EDT)Anatomical RegionLaterality ModalityOtherSpecimen (Source)Anatomical Location / LateralityCollection Method / VolumeCollection TimeReceived Time07/03/2025 9:41 PM EDT Narrative 07/03/2025 9:44 PM EDT [facility] ?[address] ? [place], [facility] ? Ultrasound Report ? Signed ? Patient: HEISHMAN,CLARK R ?MR#: [id number] ?? : 1995 ?Acct:[id number] ?? Age/Sex: 29 / F ?ADM Date: 07/03/25 ?? Loc: US ? Attending Dr: Michelle Hagen ? Ordering Physician: Michelle Hagen ?? Date of Service: 07/03/25 ?? Procedure(s): US pelvis w/ transvaginal ?? Accession Number(s): [id number] ? cc: Michelle Hagen; REINIER URBAN ? [facility] ? [address] [facility] ? [place] [address] ? Patient Name: ?? CLARK PULLIAM ? MRN: [facility]:[id number] ? date: 1995 ?Sex: F ?? Assigned Patient Location: US ?? Current Patient Location: LAB ?? Accession/Order Number: [id number] ?? Exam Date: 07/03/2025 ??15:00 ?Report Date: 07/03/2025 ??21:41 ? At the request of: ?? MICHELLE ??XIAO ? Procedure: ??US pelvis w/ transvaginal ? Ultrasound pelvis with transvaginal ? INDICATION: Pelvic pain with female ? COMPARISON: None ? FINDINGS: Anteverted uterus measuring 8.7 x 3.5 x 5.3 cm in size. ??Endometrial ?? thickness 1 cm. ??Multiple nabothian cysts within cervix. ??A small amount of ?? fluid in cul-de-sac. ? Right ovary 2.3 x 1.9 x 2.5 cm, Unremarkable. ??Left ovary 2.8 x 2.4 x 2.4 cm, ?? unremarkable. ? US/US pelvis w/ transvaginal ?? IMPRESSION: Unremarkable pelvic ultrasound, physiologic findings. ? Impression dictated by: Wyatt Donaldson M.D. ??07/03/2025 9:41 PM ? Dictation Location: [facility]-29 ? Electronically authenticated by: [id number] ??Y ?? Date: 07/03/2025 ??21:41 ? Dictated By: ?Wyatt Donaldson M.D. ? Signed By: ?07/03/252143 ? DD/ 40 ? TD/TT: ? Dopeman: Procedure Note Radiology, Radiologist, - 07/03/2025 [place] [address] Ultrasound Report Signed Patient: CLARK PULLIAM RMR#: [id number] : 1995Acct:[id number] Age/Sex: 29 / FADM Date: 07/03/25 Loc: US Attending Dr: Michelle Hagen Ordering Physician: Michelle Hagen Date of Service: 07/03/25 Procedure(s): US pelvis w/ transvaginal Accession Number(s): [id number] cc: Michelle Hagen; REINIER URBAN The [place] [id number] Patient Name: CLARK PULLIAM MRN: [id number]:[id number] date: 1995 Sex: F Assigned Patient Location: US Current Patient Location: LAB Accession/Order Number: [id number] Exam Date: 07/03/2025 15:00 Report Date: 07/03/2025 21:41 At the request of: MICHELLE HAGEN Procedure: US pelvis w/ transvaginal Ultrasound pelvis with transvaginal INDICATION: Pelvic pain with female COMPARISON: None FINDINGS: Anteverted uterus measuring 8.7 x 3.5 x 5.3 cm in size.Endometrial thickness 1 cm. Multiple nabothian cysts within cervix. A small amountof fluid in cul-de-sac. Right ovary 2.3 x 1.9 x 2.5 cm, Unremarkable. Left ovary 2.8 x 2.4 x 2.4cm, unremarkable. US/US pelvis w/ transvaginal IMPRESSION: Unremarkable pelvic ultrasound, physiologic findings. Impression dictated by: Wyatt Donaldson M.D. 07/03/2025 9:41 PM Dictation Location: [facility] Electronically authenticated by: [id number] Y Date: :41 Dictated By: Wyatt Donaldson M.D. Signed By:07/03/252143 DD/ 40 TD/TT: Dopeman: Authorizing ProviderResult TypeResult StatusKrodilia Xiao NPCLINISYNC IMAGING Final Result * ECG 12-LEAD (07/03/2025 3:35 PM EDT)Anatomical RegionLateralityModalityOther Specimen (Source)Anatomical Location / LateralityCollection Method / Volume Collection TimeReceived Time07/03/2025 3:35 PM EDT Narrative 07/03/2025 6:41 PM EDT [facility] ?[address] ? [place] [address] ? Electrocardiograph Report ? Signed ? Patient: CLARK PULLIAM R ?MR#: [id number] ?? : 1995 ?Acct:[id number] ?? Age/Sex: 29 / F ?ADM Date: 07/03/25 ?? Loc: US ? Attending Dr: Michelle Hagen ? Ordering Physician: Michelle Hagen ?? Date of Service: 07/03/25 ?? Procedure(s): ECG 12 lead ?? Accession Number(s): [id number] ? cc: ?[facility] ? Test Date: ?2025-07-03 ?? Pat Name: ? CLARK HEISHMAN ? Department: ? Room: ? - ?? Gender: ? Female ? 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 Requested By: MICHELLE HAGEN ?? Order Number: [id number] ?Reading MD: ?? YANIV GARCIA ? Measurements ?? Intervals ?[place] ? Rate: ? 85 ? P: ?49 ?? ND: ? 164 ?QRS: ?54 ?? QRSD: ? 81 ? T: ?34 ?? QT: ? 349 ? QTc: ?416 ? Interpretive Statements ?? SINUS RHYTHM ?? Compared to ECG 03/19/2023 10:23:49 ?? No significant changes ?? Electronically Signed On 07-03-2025 18:40:54 EDT by YANIV GARCIA ? Dictated By: ?Yaniv Garcia M.D. ? Signed By: ?07/03/25 1841 ?07/03/25 1841 ? DD/ 1535 ? TD/TT: ? 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 Signed By:07/03/25184007/03/25 184 DD/ 1535 TD/TT: Dopeman: Authorizing ProviderResult TypeResult StatusMichelle Hagen NPCLINISYNC IMAGING Final Result * [facility] PREG QUANT HCG (07/01/2025 10:44 [...] EDT Authorizing ProviderResult TypeResult StatusMichelle Hagen FORMERLY [facility]ITALLINISYNCFinal ResultPerforming OrganizationAddressty/State/ZIP CodePhone Number [facility] * SRMCOH PROTHROMBIN TIME INR W/O COUM (07/01/2025 10:44 AM EDT)ComponentValue Ref RangeTest MethodAnalysis TimePerformed AtPathologist SignaturePROTHROMBIN TIME10.99.0 - 11.6 secTBHTBH INR1.03TBHComment: DESIRED INR: 2.0-3.0 CONDITIONS NOT LISTED BELOW 2.5-3.5 FOR PROSTHETIC HEART VALVE REPLACEMENT 2.5-3.5 RECURRENT THROMBOSIS Specimen (Source)Anatomical Location / LateralityCollection Method / Volume Collection TimeReceived Time07/01/2025 10:44 AM EDT1 10:46 AM EDT Narrative [facility] - 07/01/2025 12:11 PM EDT Authorizing ProviderResult TypeResult StatusMichelle BelloEncompass Health Rehabilitation Hospital of DothanLINISYNCFinal ResultPerforming OrganizationAddressCity/State/ZIP CodePhone Number [facility] * MLR HEMOGLOBIN A1C (07/01/2025 10:44 AM EDT)ComponentValueRef RangeTest Method Analysis TimePerformed AtPathologist SignatureGLYCOHEMOGLOBIN A1C4.74.5 - 6.2 %TBHComment: ADA RECOMMENDED LIMIT 4.0 - 6.0 ADA THERAPEUTIC TARGET < 7.0 ACTION SUGGESTED > 7.0 ESTIMATED AVERAGE CNZQDLA61wl/dLTBHSpecimen (Source)Anatomical Location / LateralityCollection Method / VolumeCollection TimeReceived Time07/01/2025 10:44 AM EDT1 10:46 AM EDT Narrative [facility] - 07/01/2025 11:13 AM EDT Authorizing ProviderResult TypeResult StatusMichelle Belloly NPCLINISYNCFinal ResultPerforming OrganizationAddressty/State/ZIP CodePhone Number [facility] * CCF APTT (07/01/2025 10:44 AM EDT)ComponentValueRef RangeTest MethodAnalysis TimePerformed AtPathologist SignaturePARTIAL THROMBOPLASTIN TIME31.322.3 - 36.2 secTBHSpecimen (Source)Anatomical Location / LateralityCollection Method / VolumeCollection TimeReceived Time07/01/2025 10:44 AM EDT1 10:46 AM EDT Narrative [facility] - 07/01/2025 12:11 PM EDT Authorizing ProviderResult TypeResult StatusMichelle Hagen FORMERLY [facility]ITALLINISYNCFinal ResultPerforming OrganizationAddressCity/State/ZIP CodePhone Number [facility] * ALL THYROXINE (T4) FREE (07/01/2025 10:44 AM EDT)ComponentValueRef RangeTest MethodAnalysis TimePerformed AtPathologist SignatureFREE T41.050.76 - 1.46 ng/dLTBHSpecimen (Source)Anatomical Location / LateralityCollection Method / VolumeCollection TimeReceived Time07/01/2025 10:44 AM EDT1 10:46 AM EDT Narrative [facility] - 07/01/2025 11:50 AM EDT Authorizing ProviderResult TypeResult StatusMichelle Hagen FORMERLY [facility]ITALLINISYNCHerkimer Memorial Hospitalal ResultPerforming OrganizationAddressCity/State/ZIP CodePhone Number [facility] * ALL THYROID STIM HORMONE (07/01/2025 10:44 AM EDT)ComponentValueRef RangeTest MethodAnalysis TimePerformed AtPathologist SignatureTHYROID STIMULATING HORMONE1.7820.358 - 3.740 uIU/mLTBHSpecimen (Source)Anatomical Location / LateralityCollection Method / VolumeCollection TimeReceived Time07/01/2025 10:44 AM EDT1 10:46 AM EDT [facility] - 07/01/2025 11:50 AM EDT Authorizing ProviderResult TypeResult StatusMichelle Hagen FORMERLY [facility]ALLINISYNCHerkimer Memorial Hospitalal ResultPerforming OrganizationAddressCity/State/ZIP CodePhone Number [facility] * (ABNORMAL) ALL CBC WITH AUTO DIFF (07/01/2025 10:44 AM EDT)ComponentValueRef RangeTest MethodAnalysis TimePerformed AtPathologist SignatureTBH WBC9.24.0 - 11.0 10 3/uLTBHTBH RBC4.824.20 - 5.40 10 6/uLTBHTBH HGB15.112.0 - 16.0 g/dLTBH TBH HCT43.636.0 - 48.0 %TBHTBH MCV90.581.0 - 99.0 fLTBHTBH MCH31.326.7 - 34.0 pgTBHTBH MCHC34.629.9 - 35.2 g/dLTBHTBH RDW11.911.0 - 15.0 %TBHTBH BWU842218 - 450 10 3/uLTBHTBH MPV9.4(L)9.5 - 13.5 [...] Xiao NPCLINISYNCFinal ResultPerforming OrganizationAddressCity/State/ZIP CodePhone Number [facility] * (ABNORMAL) POCT urinalysis dipstick manually [...] Location / LateralityCollection Method / VolumeCollection TimeReceived WhzjBowzi39/27/2025 10:15 AM EDT Narrative Authorizing ProviderResult TypeResult StatusAmy Grays [place] PAPOINT OF CARE TEST ENTER/EDIT ORDERABLESFinal Result * POCT , urine manually resulted (07/01/2025 10:13 AM EDT)Component ValueRef RangeTest MethodAnalysis TimePerformed AtPathologist SignaturePreg Test, UrNegativeNegativeSpecimen (Source)Anatomical Location / Laterality Collection Method / VolumeCollection TimeReceived MhoiNbfsn28/27/2025 10:13 AM EDT Narrative Authorizing ProviderResult TypeResult [...] at: 01 =G ?[facility] [place] ?? [address] [place], [place] ??[phone] ?? Cari Frost MD, IGP, APTIMA HPV, RFX 16/18,45Note.TBHComment: ?? TESTS ? RESULT ??FLAG ??UNITS ?REF RANGE ??LAB DIAGNOSIS: ?02 ?? NEGATIVE FOR INTRAEPITHELIAL LESION OR MALIGNANCY. Specimen adequacy: ?02 ?? Satisfactory for evaluation. ??Endocervical and/or squamous metaplastic ?? cells (endocervical component) are present. Performed by: ? 02 ?? Norma Vargas Senior Programmer (ASCP) . ? 02 Note: ? Note [...] pap test was interpreted ?? using the [employer](R) Genius(TM) Cervical Algorithm whole ?? slide imaging system. HPV Genotype Reflex ?? Note ?02 ?? Criteria not met, HPV Genotype not performed. ?FLAG LEGEND: ?L-Low Normal,H-High Normal,LL-Alert Low,HH-Alert High <-Panic Low,>-Panic High,A-Abnormal,AA-Critical Abnormal Performed at: 02 WB ?[facility] [place] ?? [address] [place], [place] ??[phone] ?? Cari Frost MD, HPV APTIMANegativeNegativeTBHComment: This nucleic acid amplification test detects fourteen high- risk HPV types (16,18,31,33,35,39,45,51,52,56,58,59,66,68) without differentiation. Performed at: ??=G - [facility] [address] ??[id number] Cornice Maker: Cari Frost MD, Phone: ??[phone] Performed at: ??WB - [facility] [address] ??[id number] Cornice Maker: Cari Frost MD, Phone: ??[phone] Specimen (Source)Anatomical Location / LateralityCollection Method / Volume Collection TimeReceived Time07/01/2025 9:07 AM EDT1 12:58 PM EDT Narrative [facility] - 07/03/2025 2:09 PM EDT BRUSH-SPATULA CERVIX ENDOCERVIX Authorizing ProviderResult TypeResult StatusMichelle Hagen NPLAB BLOOD ORDERABLESFinal ResultPerforming OrganizationAddressCity/State/ZIP CodePhone Number [facility] * PAP TEST, EXTERNAL (07/01/2025 12:00 AM EDT) Narrative Authorizing ProviderResult TypeResult StatusMichelle Hagen NPLAB CYTOLOGY ORDERABLESFinal ResultPerforming OrganizationAddressCity/State/ZIP CodePhone Number EXTERNAL LAB from Last 3 Months Insurance
--- OUTSIDE RECORDS SUMMARY | 2025-08-30 15:18 | XMS_ITS | Encounter Summary ---
Author Organization [employer] [facility] tem Address [id number] [address] [place] [address] Care Team Providers Care Mail Handlers Supervisor Name Role Phone Jerry Orozco MD Primary Care Provider [phone] Encounter Details DateTypeDepartmentCare Team (Latest Contact Info)Mugvhwaoroo51/26/2025Travel Social History Tobacco UseTypesPacks/DayYears UsedDateSmoking Tobacco: NeverSmokeless Tobacco: NeverAlcohol UseStandard Drinks/WeekCommentsNo0 (1 standard drink = 0.6 oz pure alcohol)PHQ-2AnswerDate RecordedTotal Exwqw5715ChildcareAnswerDate FsvorenlRpxtchhqlWodkdqf61/12/2019EmploymentAnswerDate RecordedEmploymentUnknown 02/14/2019Hunger ScreeningAnswerDate RecordedWithin the past 12 months we worried whether our food would run out before we got money to buy more.Never True04/26/2025Within the past 12 months the food we bought just didn't last and we didn't have money to get more.Never True04/26/2025Purpose - LifeAnswerDate RecordedPurpose and direction in ijjjAlcduru80/11/2021CommentsNoSex and Gender InformationValueDate RecordedSex Assigned at BirthNot on fileLegal Sex Fdtkqe5304/10/2015 11:48 AM EDTGender IdentityNot on fileSexual OrientationNot on filedocumented as of this encounter Plan of Treatment Not on file documented as of this encounter Visit Diagnoses Not on filedocumented in this encounter Additional Health Concerns AssessmentNoted TimePHQ-9 Depression Total Score: 008 3:09 PM EDT documented as of this encounter Care Teams Team MemberRelationshipSpecialtyStart DateEnd Date Jerry Orozco MD [address] [place] [address], [address] [place] [id number] PCP - GeneralPediatric02/15/18documented as of this encounter
--- OUTSIDE RECORDS SUMMARY | 2025-08-30 15:18 | XMS_ITS | Clinical Summary ---
Author Organization [facility] Address [address] [place] [address] Care Team Providers Care Coremaker Bench Name Role Phone Jerry Orozco MD Primary Care Provider [phone] Allergies Active AllergyReactionsCriticalityNoted BeqoJmchhccuTwyxxjxkqgoRfsrXgp57/16/2017 Medications MedicationSigDispense QuantityRefillsLast FilledStart DateEnd DateStatus escitalopram (Lexapro) 10 mg tablet Take 10 mg by mouth in the morning.5Active SEMAGLUTIDE, WEIGHT LOSS, SUBQ Inject 2.5 Units under the skin once a week.Active Active Problems ProblemNoted DateDiagnosed DateSyncope and /14/2025bdominal pain of multiple sites08/18/20259347Vqqbiqr74/14/2025lass 3 severe obesity due to excess calories without serious comorbidity with body mass index (BMI) of 40.0 to 44.9 in adult08/18/2025S/P ssjngupfcmispya80/14/7585Abjxrwbxkv64/08/2025menorrhea, ahtfdiqjg68/13/2018 Encounters DateTypeDepartmentCare FocsGnexworpiee11/08/2025 12:20 PM ESTOffice Visit [facility] [address] [place] [address] Tori Nava MD Syncope and collapse (Primary Dx); Abdominal pain of multiple sites; Anxiety; Class 3 severe obesity due to excess calories without serious comorbidity with body mass index (BMI) of 40.0 to 44.9 in adult (CMS/HCC); S/P cholecystectomyfrom Last 3 Months Family History Medical HistoryRelationNameCommentsAtrial fibrillationMaternal Grandmother Coronary artery diseaseMaternal GrandmotherRelationNameStatusCommentsFatherAlive Maternal GrandmotherAliveMotherAlive Social History Tobacco UseTypesPacks/DayYears UsedDateSmoking Tobacco: NeverSmokeless Tobacco: Never Tobacco Cessation:Counseling Given: Not Answered CommentsNoSex and Gender InformationValueDate RecordedSex Assigned at RipnyIvdqyj85/04/2025 4:19 PM ESTLegal AbgHojkuq58/29/2025 11:19 AM EDTGender NnuoynmtElkdhz85/04/2025 4:19 PM ESTSexual OrientationHeterosexual or Straight 08/08/2025 4:19 PM EST Last Filed Vital Signs Vital SignReadingTime TakenCommentsBlood Ehbvfvra443/6808/12/2025 12:41 PM EST Aktvh951608/12/2025 12:41 PM ESTTemperature--Respiratory Rate--Oxygen Saturation 98%08/12/2025 12:41 PM ESTInhaled Oxygen Concentration--Gesujj954 kg (258 lb) 08/12/2025 12:24 PM PXRDfevcc545.6 cm (5' 6 )08/12/2025 12:24 PM ESTBody Mass Index41.6408/12/2025 12:24 PM EST Plan of Treatment DateTypeDepartmentCare Team (Latest Contact Info)Yeytztpglyk39/04/2026 9:00 AM ESTOffice Visit [facility] [address] [place] [phone] Mari Rolon MD [address] [facility] [address] [facility] [place] [phone] 10/15/2025 11:00 AM ESTOffice Visit [facility] [address] [place] [address] Tori aNva MD [address] [place]:[address] [place] [address] Health MaintenanceDue DateLast DoneCommentsDepression Lbukuvlwi53/12/2005 Varicella Vaccines (1 of 2 - 13+ 2-dose series)2006Pap Smear2014 Adult Selrnwy8107/17/2015HPV Vaccines (1 - 3-dose SCDM series)2020Cervical Cancer Hmtnfviuc86/12/2023HPV/Vhwojv293COVID-19 Vaccine ( - 2024- season)/01/2021, 12/31/2020, 12/03/2020Influenza Vaccine (#1) 2025Zoster Vaccines (1 of 2)2043HIB VaccinesAged OutNo longer [...] patient's age to complete this topic Insurance Care Teams Team MemberRelationshipSpecialtyStart DateEnd Date Jerry Orozco MD [address] [place] [address], [address] [place] [address] PCP - GeneralInternal Xkflejlk74/5/25
--- OUTSIDE RECORDS SUMMARY | 2025-08-30 15:18 | XMS_ITS | Clinical Summary ---
Author Organization [facility] Address [id number] [address] [place] [address] Care Team Providers Care Assistant City Attorney Name Role Phone Jerry Orozco MD Primary Care Provider [phone] Allergies Active AllergyReactionsCriticalityNoted ZalnFzehfzcnXgxcrerlxdqUbflDwu15/16/2017 Medications MedicationSigDispense QuantityRefillsLast FilledStart DateEnd DateStatus SEMAGLUTIDE SUBQ Inject under the skin every 7 days.Active escitalopram (LEXAPRO) 10 mg tablet Indications:AnxietyTake 1 tablet (10 mg total) by mouth in the morning. 90 tablet 5Active azithromycin (ZITHROMAX) 250 mg tablet Indications:BronchitisTake 2 tablets the first day, then 1 tablet daily for 4 days. 6 tablet 515Active azithromycin (ZITHROMAX) 250 mg tablet Indications:Pharyngitis, unspecified etiologyTake 2 tablets the first day, then 1 tablet daily for 4 days. 6 tablet 5110/04/2024Expired Active Problems ProblemNoted DateDiagnosed DateAmenorrhea, qlzqfuall47/13/2018 Encounters DateTypeDepartmentCare AraiZluvttcodkq26/26/2025 10:00 AM ESTOffice Visit [facility] [address] [facility] [address] [place] [address] Jerry Orozco MD Bronchitis (Primary Dx)08/30/20259785Ojhtmm57/26/2025 10:00 AM ESTOffice Visit [facility] [address] [place] [address] [place] [address] Jerry Orozco MD Pharyngitis, unspecified etiology (Primary Dx)07/31/20259752Ndajaf02/31/2025Orders Only [facility] [address] [place] [address] External, Scanning Provider from Last 3 Months Immunizations ImmunizationAdministration DatesNext DueCOVID-19, mRNA, LNP-S, PF, 100mcg/0.5mL Dose08/09/2021,12/31/2020,12/03/2020 Family History Medical HistoryRelationNameCommentsHypertensionFatherHypertensionMaternal GrandfatherCholecystitisMaternal GrandmotherHeart diseaseMaternal Grandmother HypertensionMaternal UncleGallbladder diseaseMotherRelationNameStatusComments FatherAliveMaternal GrandfatherMaternal GrandmotherDeceasedMaternal UncleMother Alive Social History Tobacco UseTypesPacks/DayYears UsedDateSmoking Tobacco: NeverSmokeless Tobacco: Never Tobacco Cessation:Counseling Given: No Alcohol UseStandard Drinks/WeekCommentsNo0 (1 standard drink = 0.6 oz pure alcohol)PHQ-2AnswerDate RecordedTotal Fsqyp1855ChildcareAnswerDate OuhjsuzsOnlzptmfzLwljibs26/12/2019EmploymentAnswerDate RecordedEmploymentUnknown 02/14/2019Hunger ScreeningAnswerDate RecordedWithin the past 12 months we worried whether our food would run out before we got money to buy more.Never True04/26/2025Within the past 12 months the food we bought just didn't last and we didn't have money to get more.Never True04/26/2025Purpose - LifeAnswerDate RecordedPurpose and direction in dzshFhrflkt53/11/2021CommentsNoSex and Gender InformationValueDate RecordedSex Assigned at BirthNot on fileLegal Sex Idvbdm2304/10/2015 11:48 AM EDTGender IdentityNot on fileSexual OrientationNot on file Last Filed Vital Signs Vital SignReadingTime TakenCommentsBlood Khazjyza693/9108/30/2025 10:04 AM EST Ecisc6401/26/2025 10:04 AM HNCJdvnzxmqenn87.7 ??C (98 ??F)08/30/2025 10:04 AM ESTRespiratory Mwje351309/16/2018 12:15 PM ESTOxygen Jpsplmqsbe32%08/30/2025 10:04 AM ESTInhaled Oxygen Concentration--Rlbpqq884 kg (253 lb 9.6 oz)08/30/2025 10:04 AM EMZRxihih633.3 cm (5' 6.26 )08/30/2025 10:04 AM ESTBody Mass Index40.61 08/30/2025 10:04 AM EST Plan of Treatment Health MaintenanceDue DateLast DoneCommentsAdult BMI Follow Up Plan2011 DTaP,Tdap and Td Vaccines (1 - Tdap)2012Pap Smear2014COVID-19 Vaccine (4 - season)512/01/2021, 12/31/2020, 12/03/2020 Influenza Bnrfujs8805/06/2025Depression Glptyjbpf88/dult BMI Peafaxycl55Tobacco Cjwvxphhb82 Medical Devices Not on file Procedures Procedure NamePriorityDate/TimeAssociated DiagnosisCommentsUS PELVIC WITH JUFEBCQGAHZZHvtnzoa88/29/2025 10:01 AM EDTfrom Last 3 Months Results * Ultrasound pelvic with transvaginal (07/03/2025 10:01 AM EDT)Anatomical Region LateralityModalityBody, PelvisUltrasound Narrative Authorizing ProviderResult TypeResult StatusScanning Provider ExternalIMG US ORDERABLESFinal Result from Last 3 Months Insurance * Guarantor: Carmelita NunezAccount TypeRelation to PatientDate of PhoneBilling LnbtkhlBknruyHwqt1993 [address] [place] [address] Care Teams Team MemberRelationshipSpecialtyStart DateEnd Date Jerry Orozco MD [address] [place] [address], [address] [place] [address] PCP - GeneralPediatric02/15/18
== END 2025-08-30 15:16 | disposition home or self-care (01) ==
LOC: LAB 15:16
PROVIDERS: PCP Internal Medicine; Visit Provider Obstetrics & Gynecology
DX: Z31.41 Encounter for fertility testing (principal)
CPT/HCPCS: 36415; 84144